=== PATIENT | male | born 1945 | race Caucasian/White ===

== ENCOUNTER 2016-11-22 09:04 | Observation (INO) | payer OTHER ==
[~2016-11-22] VITALS: Ht 182.9 cm; Wt 106.2 kg
[~2016-11-22 09:04] MED LIST: ALL100 PO; AMLO-114 PO; ATOR-24 PO; HYDR25TA4 PO; LOSA50TA54 PO; NRN400 PO; PANT40TA PO
[2016-11-22] MEDS ORDERED: SODIUM CHLORIDE 0.9% 1000ML 1,000 ML IV STA (09:27)
[2016-11-22] MEDS ORDERED: ALLO100T PO (09:30)
[2016-11-22] MEDS ORDERED: ASPI-435 PO (09:30)
[2016-11-22 09:42] LABS: BASO % 0.6 %; BASO ABS # 0.05 K/uL (0-0.2); COMPLETE YES; EOS % 4.2 %; HEMATOCRIT 41.9 % (42-52); IG% 0.1 %; LYMPH % 37.6 %; LYMPH ABS # 3.33 K/uL (1.2-3.4); MEAN CELL VOLUME 97.4 fL (80-100); MEAN CORPUSCULAR HEMOGLOBIN 32.6 pg (25-34); MEAN CORPUSCULAR HGB CONC 33.4 g/dl (32-36); MEAN PLATELET VOLUME 11.2 fL (7.4-10.4); MONO % 7.9 %; NEUT % 49.6 %; PLATELET COUNT 187 K/uL (130-400); WHITE BLOOD COUNT 8.86 K/uL (4.8-10.8)
[2016-11-22 09:50] LABS: BUN/CREATININE RATIO 13.7 (10-20); CALCIUM 8.7 mg/dl (8.5-10.1); CREATININE 1.3 mg/dl (0.60-1.40); POTASSIUM 3.4 mmol/L (3.5-5.1)
[2016-11-22 09:55] LABS: CKMB/CK RATIO 1.5 (0-3.0)
--- NOTE | 2016-11-22 10:00 | EMERGENCY ROOM VISIT NOTE ---
ED Visit Note First contact with patient: 09:16 71-year-old male with substernal chest pain radiating into the back associated with diaphoresis and shortness of breath was fully evaluated by Jerson Devlin. Please see his note. I also independently evaluated the patient. Multiple studies including EKG and imaging were obtained. The patient will require further evaluation in the hospital.
[2016-11-22] MEDS ORDERED: OPTIRAY 320 IV PRN (10:15)
--- NOTE | 2016-11-22 10:17 | DIAGNOSTIC IMAGING REPORT ---
CHEST ONE VIEW PORTABLE CLINICAL HISTORY: CHEST PAIN dyspnea COMPARISON STUDY: No previous studies for comparison. FINDINGS: Mild cardia megaly. Diaphragms smooth. Lungs are clear. IMPRESSION: Mild cardiomegaly. Otherwise negative study Electronically signed by: Dony Khan M.D. 11/22/2016 10:16 AM Dictated Date/Time: 11/22/2016 10:15 AM
--- NOTE | 2016-11-22 10:44 | DIAGNOSTIC IMAGING REPORT ---
CHEST CTA for AORTIC DISSECTION CT DOSE: 1853.13 mGy.cm HISTORY: Back pain. Facial paresthesias. Assess for dissection. TECHNIQUE: Multiaxial CT images of the chest were performed both before and after the intravenous administration of contrast to evaluate the aorta. Maximal intensity projection images were also obtained. COMPARISON STUDY: Chest 11/22/2016. FINDINGS: Normal caliber thoracic aorta with no evidence for dissection. The main pulmonary arteries are patent. No pleural or pericardial effusions. The heart is top normal in size. The central airways are patent. No pneumothorax. A 3 mm right apical pulmonary nodule on image 86. Mild dependent changes seen at the lung bases. Hepatic steatosis. The visualized spleen and adrenal glands are unremarkable. No mediastinal or hilar lymphadenopathy. IMPRESSION: 1. No evidence for an aortic dissection. 2. A 3 mm right apical pulmonary nodule. Please refer to the chart below for recommended follow-up. Please refer to below summary of Fleischner criteria recommendations for follow-up of incidental CT nodules (Alonso Stanford, Guidelines for management of small pulmonary nodules detected on CT scans: A statement from the Fleischner Society, Radiology 237: [id number].) Low Risk Patient: Minimal or no smoking or other known risk factors for malignancy <=4 mm: No follow-up needed. >4-6 mm: Initial follow-up CT at 12 months; if unchanged, no further follow-up. >6-8 mm: Initial follow-up CT at 6-12 months then at 18-24 months if no change. >8 mm: Follow-up CT at \R\3, 9, 24 months, or PET and/or biopsy. High Risk Patient: History of smoking or other known risk factors <=4 mm: Follow-up at 12 months; if unchanged, no further follow-up. >4-6 mm: Initial follow-up CT at 6-12 months then at 18-24 months if no change. >6-8 mm: Initial follow-up CT at 3-6 months then at 9-12 and 24 months if no change. >8 mm: Same as low risk patient. Note: Nodule size measured as average of length and width. Ground glass or partly solid nodules may require longer follow-up to exclude indolent adenocarcinoma. Electronically signed by: Ashu Pulliam M.D. 11/22/2016 10:43 AM Dictated Date/Time: 11/22/2016 10:36 AM
[2016-11-22 10:54] VITALS: BP 119/58; PULSE 63; TEMP 36.8; O2SAT 96; Ht 182.9 cm; Wt 106.2 kg
[2016-11-22] MEDS ORDERED: NITROGLYCERIN 0.4 MG SL PER TAB CHARGE SL PRN (11:15)
[2016-11-22] MEDS ORDERED: ONDANSETRON INJ 2 MG/ML 2 ML VIAL IV PRN (11:15)
[2016-11-22] MEDS ORDERED: MAGNESIUM HYDROXIDE SUSP 30 ML UDC PO PRN (11:15)
[2016-11-22] MEDS ORDERED: SODIUM CHLORIDE 0.9% 1000ML 1,000 ML IV ONE (11:15)
[2016-11-22] MEDS ORDERED: ALUMINUM/MAGNESIUM/SIMETH (MAALOX MAX) 30 ML UDC PO PRN (11:15)
[2016-11-22] MEDS ORDERED: POLYETHYLENE (MIRALAX) 17 GM PACK PO PRN (11:15)
[2016-11-22] MEDS ORDERED: ACETAMINOPHEN 325 MG TAB PO PRN (11:15)
--- NOTE | 2016-11-22 11:33 | History and Physical ---
History & Physical Date & Time of Service: Nov 22, 2016 at 11:10 Chief Complaint: Heart Attack Signs Primary Care Physician: Erik Salinas M.D. History of Present Illness Source: patient, family Patient is a pleasant 71 y/o male, with PMHx of CAD s/p STEMI in 2011 with stent placement x2 (left circumflex and obtuse marginal), HTN, HDL, and GERD, who presented to the ED because of chest discomfort. He was at work today, when sudden, intense chest discomfort occurred. Pain radiated between shoulder blades. +facial numbness/tingling. +diaphoresis. +nausea. Patient took nitro x1 with relief in symptoms. Symptoms are very similar to previous episode of RI. Prior to the event, patient has not experienced angina. Patient recently followed-up with cardiology within the last 1-2 weeks, with a good report. Currently, patient states he is feeling well. Patient denies any fever, chills, lightheadedness, dizziness, vision changes, palpitations, edema, SOB, wheezing , cough, abdominal pain, vomiting, diarrhea, urinary symptoms, melena, weakness , muscle/joint pain, anxiety/depression, active bleeding, or new skin discoloration/changes. Past Medical/Surgical History 1. CAD s/p STEMI in 2011 with stent placement x2 (left circumflex and obtuse marginal) 2. HTN 3. HDL 4. GERD 5. Pre-diabetic 6. Malignant neoplasm of prostate, s/p prostate resection Family History Cancer Diabetes mellitus Heart disease Hypertension Social History Smoking Status: Former Smoker Alcohol Use: occasionally Marital Status: Occupational Status: retired Immunizations History of Influenza Vaccine: No History of Tetanus Vaccine?: Unknown History of Pneumococcal: No History of Hepatitis B Vaccine: No Multi-Drug Resistant Organisms History of MDRO: No Allergies Coded Allergies: Lisinopril (Verified Adverse Reaction, Unknown, cough, 11/22/16) Home Medications Scheduled Allopurinol (Zyloprim), 100 MG PO DAILY Amlodipine (Norvasc), 10 MG PO QAM Aspirin (Aspirin 81), 81 MG PO QAM Atorvastatin (Lipitor), 40 MG PO QPM Gabapentin (Gabapentin), 400 MG PO BID Hydrochlorothiazide (Hctz), 25 MG PO QAM Losartan Potassium (Cozaar), 50 MG PO BID Pantoprazole (Protonix), 40 MG PO QAM Physical Exam Vital Signs Date Time Temp Pulse Resp B/P Pulse Ox O2 Delivery O2 Flow Rate FiO2 11/22/16 10:54 36.8 63 15 119/58 96 Room Air 11/22/16 10:34 59 16 119/58 95 Room Air 11/22/16 10:10 54 16 120/74 99 Room Air 126/68 11/22/16 09:52 59 16 112/63 96 Room Air 11/22/16 09:20 66 11/22/16 09:10 36.4 73 16 107/63 96 Room Air General Appearance: no apparent distress, + obese Head: normocephalic, atraumatic Eyes: normal inspection, PERRL ENT: hearing grossly normal Neck: supple Respiratory/Chest: lungs clear, no respiratory distress, no accessory muscle use Cardiovascular: normal peripheral pulses, + bradycardia, + pertinent finding ( regular rhythm ) Abdomen/GI: normal bowel sounds, non tender, soft Back: normal inspection Extremities/Musculoskelatal: no calf tenderness, no pedal edema Neurologic/Psych: alert, normal mood/affect, oriented x 3 Skin: normal color, warm/dry, no rash Diagnostics Laboratory Results Results Past 24 Hours Test 11/22/16 09:20 11/22/16 09:33 Range/Units White Blood Count 8.86 4.8-10.8 K/uL Red Blood Count 4.30 4.7-6.1 M/uL Hemoglobin 14.0 14.0-18.0 g/dL Hematocrit 41.9 42-52 % Mean Corpuscular Volume 97.4 80-100 fL Mean Corpuscular Hemoglobin 32.6 25-34 pg Mean Corpuscular Hemoglobin Concent 33.4 32-36 g/dl Platelet Count 187 130-400 K/uL Mean Platelet Volume 11.2 7.4-10.4 fL Neutrophils (%) (Auto) 49.6 % Lymphocytes (%) (Auto) 37.6 % Monocytes (%) (Auto) 7.9 % Eosinophils (%) (Auto) 4.2 % Basophils (%) (Auto) 0.6 % Neutrophils # (Auto) 4.40 1.4-6.5 K/uL Lymphocytes # (Auto) 3.33 1.2-3.4 K/uL Monocytes # (Auto) 0.70 0.11-0.59 K/uL Eosinophils # (Auto) 0.37 0-0.5 K/uL Basophils # (Auto) 0.05 0-0.2 K/uL RDW Standard Deviation 47.4 36.4-46.3 fL RDW Coefficient of Variation 13.3 11.5-14.5 % Immature Granulocyte % (Auto) 0.1 % Immature Granulocyte # (Auto) 0.01 0.00-0.02 K/uL Sodium Level 141 136-145 mmol/L Potassium Level 3.4 3.5-5.1 mmol/L Chloride Level 104 98-107 mmol/L Carbon Dioxide Level 23 21-32 mmol/L Anion Gap 14.0 3-11 mmol/L Blood Urea Nitrogen 18 7-18 mg/dl Creatinine 1.30 0.60-1.40 mg/dl Est Creatinine Clear Calc Drug Dose 67.8 ml/min Estimated GFR () 64.5 Estimated GFR (Non- 55.7 BUN/Creatinine Ratio 13.7 10-20 Random Glucose 128 70-99 mg/dl Calcium Level 8.7 8.5-10.1 mg/dl Total Bilirubin 0.5 0.2-1 mg/dl Direct Bilirubin 0.1 0-0.2 mg/dl Aspartate Amino Transf (AST/SGOT) 18 15-37 U/L Alanine Aminotransferase (ALT/SGPT) 34 12-78 U/L Alkaline Phosphatase 97 45-117 U/L Total Creatine Kinase 124 39-308 U/L Creatine Kinase MB 1.8 0.5-3.6 ng/ml Creatine Kinase MB Ratio 1.5 0-3.0 Total Protein 7.7 6.4-8.2 gm/dl Albumin 3.7 3.4-5.0 gm/dl Lipase 157 73-393 U/L Bedside Troponin I 0.000 0-0.045 ng/ml Diagnostic Radiology CHEST CTA for AORTIC DISSECTION CT DOSE: 1853.13 mGy.cm HISTORY: Back pain. Facial paresthesias. Assess for dissection. TECHNIQUE: Multiaxial CT images of the chest were performed both before and after the intravenous administration of contrast to evaluate the aorta. Maximal intensity projection images were also obtained. COMPARISON STUDY: Chest 11/22/2016. FINDINGS: Normal caliber thoracic aorta with no evidence for dissection. The main pulmonary arteries are patent. No pleural or pericardial effusions. The heart is top normal in size. The central airways are patent. No pneumothorax. A 3 mm right apical pulmonary nodule on image 86. Mild dependent changes seen at the lung bases. Hepatic steatosis. The visualized spleen and adrenal glands are unremarkable. No mediastinal or hilar lymphadenopathy. IMPRESSION: 1. No evidence for an aortic dissection. 2. A 3 mm right apical pulmonary nodule. Please refer to the chart below for recommended follow-up. Please refer to below summary of Fleischner criteria recommendations for follow-up of incidental CT nodules (Alonso Stanford, Guidelines for management of small pulmonary nodules detected on CT scans: A statement from the Fleischner Society, Radiology 237: [phone].) Low Risk Patient: Minimal or no smoking or other known risk factors for malignancy <=4 mm: No follow-up needed. >4-6 mm: Initial follow-up CT at 12 months; if unchanged, no further follow-up. >6-8 mm: Initial follow-up CT at 6-12 months then at 18-24 months if no change. >8 mm: Follow-up CT at \R\3, 9, 24 months, or PET and/or biopsy. High Risk Patient: History of smoking or other known risk factors <=4 mm: Follow-up at 12 months; if unchanged, no further follow-up. >4-6 mm: Initial follow-up CT at 6-12 months then at 18-24 months if no change. >6-8 mm: Initial follow-up CT at 3-6 months then at 9-12 and 24 months if no change. >8 mm: Same as low risk patient. Note: Nodule size measured as average of length and width. Ground glass or partly solid nodules may require longer follow-up to exclude indolent adenocarcinoma. Electronically signed by: Ashu Pulliam M.D. 11/22/2016 10:43 AM Dictated Date/Time: 11/22/2016 10:36 AM The status of this report is Signed. Draft = Not yet reviewed or approved by Radiologist. Signed = Reviewed and approved by Radiologist. CHEST ONE VIEW PORTABLE CLINICAL HISTORY: CHEST PAIN dyspnea COMPARISON STUDY: No previous studies for comparison. FINDINGS: Mild cardia megaly. Diaphragms smooth. Lungs are clear. IMPRESSION: Mild cardiomegaly. Otherwise negative study Electronically signed by: Dony Khan M.D. 11/22/2016 10:16 AM Dictated Date/Time: 11/22/2016 10:15 AM The status of this report is Signed. Draft = Not yet reviewed or approved by Radiologist. Signed = Reviewed and approved by Radiologist. Impression Assessment and Plan 71 y/o male, with PMHx of CAD s/p STEMI in 2011 with stent placement x2 (left circumflex and obtuse marginal), HTN, HDL, pre-diabetic, and GERD, who presented to the ED because of chest discomfort. Acute cardiac event r/o: - Admit to tele observation for cardiac monitoring - Trend cardiac enzymes - Stress test tomorrow if enzymes remain negative - IV NSS @ 125 ml/hr - Bradycardia- per patient, HR normally mid-high 50s Hypokalemia: Replace with 20 mEq KCL supplement x1. Follow PRP and replete PRN CAD s/p STEMI in 2011: - Continue ASA 81 mg - ECHO November 2014- EF 50-55%, grade I diastolic dysfunction, mid inferior wall mild hypokinesis, trace TR, trace MD - Follows with Dr. Valentine HTN: Continue Losartan 50 mg BID, HCTZ 25 mg daily, and Norvasc 10 mg HDL: - Continue Lipitor 40 mg daily - Lipid panel July 2016- triglycerides 83, total cholesterol 130, HDL 61, LDL 52 Pre-diabetic, diet controlled: ha1c July 2016= 5.8 GERD: Continue Protonix daily Gout: Continue Allopurinol 100 mg daily Lumbar radiculopathy: Continue Gabapentin 400 mg BID GI Prophylaxis: Maalox PRN, IV Zofran PRN, Colace and/or Milk of Mag PRN DVT prophylaxis: Lovenox 40 mg SQ q24 hrs, CHRISTIANO and SCDs Code Status: LEVEL I, FULL Dispo: From home, lives with Level of Care Telemetry Advanced Directives Existing Living Will: No Existing Power of Credit Controller: No Resuscitation Status FULL RESUSCITATION VTE Prophylaxis VTE Risk Assessment Done? Y/N: Yes Risk Level: Low Given or contraindicated: Enoxaparin (Lovenox)SQ, T.E.D. Stockings, SCD's
[2016-11-22 12:02] VITALS: BP 142/79; PULSE 56; TEMP 36.5; O2SAT 98
[2016-11-22] MEDS ORDERED: POTASSIUM CHLORIDE 20 MEQ TABCR PO ONE (12:30)
[2016-11-22 12:46] LABS: PROTHROMBIN TIME (PATIENT) 10.7 SECONDS (9.0-12.0)
[2016-11-22] MEDS ORDERED: IV FLUIDS COMPLETED PRN (13:45)
--- NOTE | 2016-11-22 13:48 | DIAGNOSTIC IMAGING REPORT ---
CT HEAD WITHOUT CONTRAST (CT) CLINICAL HISTORY: Dizziness, pressure COMPARISON STUDY: No previous studies for comparison. TECHNIQUE: Axial CT of the brain is performed from the vertex to the skull base. IV contrast was not administered for this examination. CT DOSE: 884.08 mGy.cm FINDINGS: No intra or extra-axial mass lesions are visualized. There is no CT evidence of acute cortical infarction. There is no evidence of midline shift. There is no acute hemorrhage. No calvarial fractures are visualized. There are patchy white matter hypodensities likely on a small vessel basis. There is no evidence of pathologic ventricular dilatation. There is mild maxillary mucosal thickening. There is ethmoid sinus mucosal thickening IMPRESSION: No acute intracranial findings Electronically signed by: Javid Ramires M.D. 11/22/2016 1:46 PM Dictated Date/Time: 11/22/2016 1:42 PM
--- NOTE | 2016-11-22 14:43 | Medical Student: [facility] ---
Consultation Date of Consultation: Nov 22, 2016. Requesting Physician: Bel Quinn PA-C Attending Physician: Ric Huitron MD Reason for Consultation: Chest pain History of Present Illness Mr. Andrade is a 71 y/o gentleman with a history of acute STEMI s/p stent placement in the LCX and obtuse marginal in 2011, as well as hypertension and hyperlipidemia, who presented to the ED this morning complaining of 10/10 pain that began between his scapulae and radiated to his chest. He noticed while he was at his place of employment around 0800 this morning. He was not exerting himself when the symptoms began. He also reports pain in his neck and jaw, diaphoresis, palpitations, and nausea at that time. He reports that this episode felt almost identical to his STEMI in 2011. Initially, his symptoms were mostly relieved with sublingual nitroglycerin, but they began to return after a short time and he decided to come to the ED. Prior to this morning, he had not been experiencing any chest pain or dyspnea at rest. He does note that he has some dyspnea on exertion, but reports that this is baseline for him. In addition, since the event this morning, he has been experiencing dysesthesias of his forehead that are persistent and stable. He denies headache or any other focal neurologic symptoms. CT of the head was negative for acute intracranial findings. He is a patient of Dr. Valentine'scarlet and states that his last stress test was in 2014. It was an exercise test and he was unable to complete it because he became hypertensive. EKG on admission showed no acute ST changes, and CK and troponin were both negative on initial lab draw. Vitals have been stable since admission. CTA was negative for aortic dissection or aneurysm. He is not experiencing any chest pain at present, and his only persistent symptom is the dysesthesia of his forehead. Past Medical/Surgical History Medical History: 1. Coronary artery disease s/p stent placement x2 2. Hypertension 3. Hyperlipidemia 4. GERD 5. Pre-diabetes 6. Prostate malignancy s/p prostate resection Family History 1. Heart disease 2. Hypertension 3. Diabetes mellitus 4. Cancer Social History Smoking Status: Former Smoker History of Alcohol Use: Yes (Beer a few a week) Marital Status: Occupation Status: retired Review of Systems Constitutional: No chills, No fever, No sweats, No weakness Eyes: No diplopia, No eye pain, No worsening of vision ENT: No hearing loss, No tinnitus Respiratory: + dyspnea on exertion, No cough, No dyspnea at rest, No hemoptysis , No shortness of breath, No sputum, No wheezing Cardiac: No PND, No chest pain, No claudication, No edema, No orthopnea, No palpitations Breast: No problem reported Abdomen: No GI bleeding, No constipation, No diarrhea, No nausea, No pain, No vomiting Musculoskeletal: No calf pain, No muscle pain, No swelling Male : No dysuria, No hematuria, No urinary frequency Neurologic: + numbness/tingling (forehead), No balance problems, No memory loss , No paralysis, No vertigo, No weakness Psychiatric: No problem reported Heme: No abnormal bleeding/bruising, No clotting problems Endo: No excessive thirst, No excessive urination Skin: No bleeding, No new/changing skin lesions, No rash All Other Systems: Reviewed and Negative Allergies Coded Allergies: Lisinopril (Verified Adverse Reaction, Unknown, cough, 11/22/16) Medications Current Inpatient Medications Medications (Trade) Dose Ordered Sig/Maximo Route Start Time Stop Time Status Last Admin Dose Admin Ioversol (Optiray 320) 125 ml UD PRN IV 11/22/16 10:15 11/26/16 10:14 Enoxaparin Sodium 40 mg 40 mg QPM SC 11/22/16 21:00 12/22/16 11:14 Sodium Chloride (Nss 1000ml) 1,000 ml @ 125 mls/hr Q8H ONCE IV 11/22/16 11:15 11/22/16 19:14 11/22/16 12:21 125 MLS/HR Acetaminophen (Tylenol Tab) 650 mg Q4H PRN PO 11/22/16 11:15 12/22/16 11:14 Al Hydrox/Mg Hydrox/Simethicone (Maalox Max Susp) 15 ml Q4H PRN PO 11/22/16 11:15 12/22/16 11:14 Magnesium Hydroxide (Milk Of Magnesia Susp) 30 ml Q12H PRN PO 11/22/16 11:15 12/22/16 11:14 Ondansetron HCl (Zofran Inj) 4 mg Q6H PRN IV 11/22/16 11:15 12/22/16 11:14 Nitroglycerin (Nitrostat Tab) 0.4 mg UD PRN SL 11/22/16 11:15 12/22/16 11:14 Polyethylene (Miralax Powder Packet) 17 gm DAILY PRN PO 11/22/16 11:15 12/22/16 11:14 Allopurinol (Zyloprim Tab) 100 mg DAILY PO 11/23/16 09:00 12/23/16 08:59 Amlodipine Besylate (Norvasc Tab) 10 mg QAM PO 11/23/16 09:00 12/23/16 08:59 Aspirin (Ecotrin Tab) 81 mg QAM PO 11/23/16 09:00 12/23/16 08:59 Atorvastatin Calcium (Lipitor Tab) 40 mg QPM PO 11/22/16 21:00 12/22/16 20:59 Gabapentin (Neurontin Cap) 400 mg BID PO 11/22/16 21:00 12/22/16 20:59 Hydrochlorothiazide (Hydrochlorothiazide Tab) 25 mg QAM PO 11/23/16 09:00 12/23/16 08:59 Losartan Potassium (coZAAR TAB) 50 mg BID PO 11/22/16 21:00 12/22/16 20:59 Pantoprazole Sodium (Protonix Tab) 40 mg QAM PO 11/23/16 09:00 12/23/16 08:59 Miscellaneous (Iv Fluids Completed) 1 ea PRN PRN N/A 11/22/16 13:45 11/22/17 13:44 Physical Exam Date Time Temp Pulse Resp B/P Pulse Ox O2 Delivery O2 Flow Rate FiO2 11/22/16 12:02 36.5 56 16 142/79 98 Room Air 11/22/16 12:00 Room Air 11/22/16 11:23 63 18 145/67 97 11/22/16 10:54 36.8 63 15 119/58 96 Room Air 11/22/16 10:34 59 16 119/58 95 Room Air 11/22/16 10:10 54 16 120/74 99 Room Air 126/68 11/22/16 09:52 59 16 112/63 96 Room Air 11/22/16 09:20 66 11/22/16 09:10 36.4 73 16 107/63 96 Room Air General Appearance: WD/WN, no apparent distress Eyes: bilateral eyes EOMI, bilateral eyes PERRL, bilateral eyes normal inspection ENT: normal ENT inspection, hearing grossly normal, pharynx normal Neck: supple, no adenopathy, no JVD, no carotid bruits, trachea midline Respiratory: chest non-tender, lungs clear, normal breath sounds, no respiratory distress, no accessory muscle use Cardiovascular: regular rate, rhythm, no edema, no gallop, no JVD, no murmur, + normal peripheral pulses (2+ posterior tibial and radial pulses bilaterally), + pertinent finding (normal capillary refill) Abdomen: normal bowel sounds, non tender, soft, no organomegaly, no pulsatile mass Musculoskeletal: normal, normal tone Neurologic/Psychiatric: independent agent music education II-XII nml as tested, no motor/sensory deficits, alert, normal mood/affect, oriented x 3, + pertinent finding (sensation is intact to the forehead) Skin: normal color, warm/dry, no rash Lymphatic: no adenopathy Laboratory Results Last 24 Hours Test 11/22/16 09:20 11/22/16 09:33 White Blood Count 8.86 K/uL Red Blood Count 4.30 M/uL Hemoglobin 14.0 g/dL Hematocrit 41.9 % Mean Corpuscular Volume 97.4 fL Mean Corpuscular Hemoglobin 32.6 pg Mean Corpuscular Hemoglobin Concent 33.4 g/dl Platelet Count 187 K/uL Mean Platelet Volume 11.2 fL Neutrophils (%) (Auto) 49.6 % Lymphocytes (%) (Auto) 37.6 % Monocytes (%) (Auto) 7.9 % Eosinophils (%) (Auto) 4.2 % Basophils (%) (Auto) 0.6 % Neutrophils # (Auto) 4.40 K/uL Lymphocytes # (Auto) 3.33 K/uL Monocytes # (Auto) 0.70 K/uL Eosinophils # (Auto) 0.37 K/uL Basophils # (Auto) 0.05 K/uL RDW Standard Deviation 47.4 fL RDW Coefficient of Variation 13.3 % Immature Granulocyte % (Auto) 0.1 % Immature Granulocyte # (Auto) 0.01 K/uL Prothrombin Time 10.7 SECONDS Prothromb Time International Ratio 1.0 Sodium Level 141 mmol/L Potassium Level 3.4 mmol/L Chloride Level 104 mmol/L Carbon Dioxide Level 23 mmol/L Anion Gap 14.0 mmol/L Blood Urea Nitrogen 18 mg/dl Creatinine 1.30 mg/dl Est Creatinine Clear Calc Drug Dose 67.8 ml/min Estimated GFR () 64.5 Estimated GFR (Non- 55.7 BUN/Creatinine Ratio 13.7 Random Glucose 128 mg/dl Calcium Level 8.7 mg/dl Total Bilirubin 0.5 mg/dl Direct Bilirubin 0.1 mg/dl Aspartate Amino Transf (AST/SGOT) 18 U/L Alanine Aminotransferase (ALT/SGPT) 34 U/L Alkaline Phosphatase 97 U/L Total Creatine Kinase 124 U/L Creatine Kinase MB 1.8 ng/ml Creatine Kinase MB Ratio 1.5 Total Protein 7.7 gm/dl Albumin 3.7 gm/dl Lipase 157 U/L Bedside Troponin I 0.000 ng/ml Assessment & Plan ASSESSMENT: Mr. Andrade is a 71 y/o gentleman with a history of acute STEMI s/p stent placement in the LCX and obtuse marginal in 2011, as well as hypertension and hyperlipidemia, who presented to the ED this morning complaining of 10/10 pain that began between his scapulae and radiated to his chest. Given the patient's cardiac history, risk factors, and the fact that his symptoms were relieved with administration of sublingual nitroglycerin, this event likely represents an acute coronary syndrome. His cardiac enzymes have been within normal limits and his EKG showed no evidence of ischemia, which points toward unstable angina as the cause of his symptoms. Other explanations for his presentation include aortic dissection, musculoskeletal pain, pulmonary embolus , and pneumothorax, though these are all significantly less likely. Aortic dissection is very unlikely in the setting of a normal CTA, and a pneumothorax would have likely shown up on his chest X-ray. Musculoskeletal pain would not exhibit such a dramatic response to administration of nitroglycerin. Pulmonary embolus is unlikely in the setting of a normal CXR and CTA, especially in combination with a lack of persistent respiratory symptoms. CT of the head showed small white matter hypodensities indicative of small vessel disease. Mr. Andrade's dysesthesias are likely the result of a small intracranial microinfarct. Given that CT was negative for hemorrhage and clinical suspicion is low for acute CVA, if this problem persists, further workup can be arranged on an outpatient basis. PLAN: 1. Suspected acute coronary syndrome -Continue to trend troponins -Serial EKG evaluation -Sublingual nitroglycerin PRN for chest pain -If chest pain free, enzymes negative --> exercise stress echo in AM. -Keep NPO -Consider full dose anticoagulation. 2. History of acute ME s/p spent placement -Continue aspirin 81 mg daily -Continue atorvastatin 40mg daily-- consider increasing dose to 80mg given patient's risk category 3. Hypertension -Continue amlodipine 10mg daily -Continue HCTZ 25mg daily -Continue losartan 50mg bid DR. HUITRON ADDENDUM: Agree with findings as discussed above by Medical Student, Bhavesh Gomez. See dictated consult for full details. Briefly, Likelihood for ACS is elevated With current presentation risk of cardiac events is low to intermediate Recommend ischemia driven strategy --> tentatively plan for exercise stress echo in AM. If recurrent pain or positive enzymes overnight --> would start heparin and consider proceeding directly to cardiac cath in AM. Keep NPO overnight. Continue ASA/statin, BP meds.
[2016-11-22 15:33] VITALS: BP 127/78; PULSE 57; TEMP 36.7; O2SAT 96
[2016-11-22 19:48] VITALS: BP 135/68; PULSE 56; TEMP 36.8; O2SAT 96
[2016-11-22 20:15] VITALS: O2SAT 96
[2016-11-22] MEDS ORDERED: ATORVASTATIN 40 MG TAB PO SCH (21:00)
[2016-11-22] MEDS ORDERED: ENOXAPARIN 40 MG/0.4 ML SYR SC SCH (21:00)
[2016-11-22] MEDS: GABAPENTIN 400 MG CAP PO SCH (21:08)
[2016-11-22] MEDS: LOSARTAN POTASSIUM 50 MG TAB PO SCH (21:08)
--- NOTE | 2016-11-22 22:08 | CARDIOLOGY CONSULTATION ---
DATE OF CONSULTATION: 11/22/2016 REASON FOR CONSULTATION: Chest pain. CONSULTED REQUESTED BY: Dr. Apple. OUTPATIENT CREATIVE TECHNOLOGIST: Dr. Valentine. HISTORY OF PRESENT ILLNESS: Mr. Andrade is a 71-year-old gentleman with a history of coronary artery disease, status post inferior STEMI in March of 2012, at which time he was found to have severe disease in his mid-circumflex and an occluded second obtuse marginal for which he had 2 bare metal stents placed. He also was noted to have severe residual proximal RCA disease, which was treated with a bare metal stent in a staged fashion later that month. The patient returns today with recurrent chest symptoms similar to his prior event. He has been admitted to the hospitalist service for continued monitoring and cardiology consultation for further management recommendations. The patient states that he had been in the usual state of health until this morning, when he developed pain in his back radiating across his chest, associated with nausea, vomiting, and some diaphoresis. The patient took 1 sublingual nitroglycerin with approximately 90% relief of his pain, but as his symptoms were very similar to what he had before, he presented to the Emergency Department. Upon presenting to the Emergency Department, the patient was hemodynamically stable with a systolic blood pressure of 107/63. He was afebrile, heart rate was 73 and he was satting 96% on room air. His initial EKG showed sinus rhythm with no significant ST changes. His initial [id number]-[id number] troponin was negative. He was given additional sublingual nitroglycerin before being admitted to the floor and he has been chest pain free since that time. PAST MEDICAL HISTORY: 1. Coronary artery disease, status post inferior STEMI in March 2012, treated with bare metal stents to his circumflex to OM2, residual LAD disease, mild to moderate, residual severe early mid-RCA disease, treated with bare metal stent, 2.25 dilated to 3.0. 2. Hypertension. 3. GERD. 4. Lumbar degenerative disc disease. 5. Hyperlipidemia. 6. Lumbar radiculopathy. 7. Obstructive sleep apnea. 8. Palpitations. PAST SURGICAL HISTORY: 1. Prior coronary artery disease, status post stent as above. 2. Prior inguinal hernia repair. FAMILY HISTORY: Mother and father both had coronary artery disease. No premature coronary disease. No sudden cardiac . SOCIAL HISTORY: The patient quit smoking more than 10 years ago. Denies heavy alcohol. Currently, works intermittently for [employer]. REVIEW OF SYSTEMS: A 10-point review of systems was completed and otherwise negative, unless stated in the HPI. HOME MEDICATIONS: 1. Allopurinol 100, amlodipine 10, aspirin 81, atorvastatin 40, gabapentin 400 b.i.d. 2. Hydrochlorothiazide 25. 3. Losartan 50 mg b.i.d. 4. Protonix 40. ALLERGIES: LISINOPRIL LEADS TO HIVES. PHYSICAL EXAMINATION: VITAL SIGNS: Temperature 36.4, heart rate 59, blood pressure 119/58, satting 95% on room air. GENERAL: The patient appears comfortable, no acute distress. HEENT: Sclerae are anicteric. Oropharynx is clear. Mucous membranes are moist. NECK: Supple with no lymphadenopathy. LUNGS: Clear to auscultation bilaterally. HEART: Regular rate and rhythm with no murmurs, rubs or gallops. ABDOMEN: Soft, nontender, nondistended with positive bowel sounds. EXTREMITIES: Warm. He has no significant lower extremity edema. He has intact distal pulses, including 2+ right radial pulse. SKIN: Shows no rashes or lesions. NEUROLOGIC: Nonfocal. PSYCHIATRIC: He is alert and oriented x3 and his mood and affect are appropriate. LABORATORY DATA: White blood cell count 8.9, hemoglobin 14, platelets of 187. INR of 1.0. Sodium 141, potassium 3.4, BUN 18, creatinine of 1.3. Ofnxf-ck-mrgi troponin was negative. LFTs were within normal limits. Lipase of 157. Chest x-ray showed mild cardiomegaly, but otherwise, no acute cardiopulmonary process. A chest CTA was negative for aortic dissection. Head CT showed no acute intracranial findings. EKG showed sinus rhythm, bradycardic at a rate of 54. There is a questionable inferior infarct, no significant dynamic ST changes. Telemetry reviewed, no significant events. IMPRESSION AND PLAN: 1. Suspected acute coronary syndrome. 2. History of coronary artery disease, status post prior percutaneous coronary intervention with bare metal stents to his circumflex to OM and bare metal stent to his early mid right coronary artery. 3. Hypertension. 4. Hyperlipidemia. 5. Gastroesophageal reflux disease. The patient presented today with acute onset of chest pain with associated symptoms similar to his prior presentation with ST elevation PA. Symptoms resolved with sublingual nitroglycerin and he has remained chest pain free. EKG and [id number] troponin has been negative. Suspicion for acute coronary syndrome is elevated although with current presentation risk of adverse cardiac events is probably low to intermediate. In this setting , I agree with continued monitoring overnight on telemetry. Continue to cycle troponins. Assuming no recurrent chest pain and cardiac markers negative, would plan for ischemia-driven strategy for further risk stratification with plan for exercise stress echo in the a.m. If he were to have recurrent chest pain or elevated enzymes, would consider proceeding with cardiac catheterization. For now, continue on aspirin, statin and home blood pressure medicines. If recurrent chest pain, would add heparin. We will continue to follow the patient while he is in the hospital. Please contact with any questions. Thank you for allowing us to participate in the care of this patient. LIZBETH
[2016-11-22 23:45] VITALS: BP 136/72; PULSE 58; TEMP 36.7; O2SAT 95
[2016-11-23 00:10] VITALS: O2SAT 95
[2016-11-23 04:00] VITALS: BP 128/65; PULSE 58; TEMP 36.8; O2SAT 95
[2016-11-23 07:51] LABS: HEMATOCRIT 41.2 % (42-52); MEAN CELL VOLUME 98.6 fL (80-100); MEAN CORPUSCULAR HEMOGLOBIN 33.5 pg (25-34); MEAN PLATELET VOLUME 11.4 fL (7.4-10.4); PLATELET COUNT 157 K/uL (130-400); RED BLOOD COUNT 4.18 M/uL (4.7-6.1); WHITE BLOOD COUNT 6.28 K/uL (4.8-10.8)
[2016-11-23] MEDS: LOSARTAN POTASSIUM 50 MG TAB PO SCH (07:53)
[2016-11-23] MEDS: GABAPENTIN 400 MG CAP PO SCH (07:53)
[2016-11-23 08:19] LABS: BUN/CREATININE RATIO 12.7 (10-20); CALCIUM 8.3 mg/dl (8.5-10.1); CREATININE 1.1 mg/dl (0.60-1.40); MAGNESIUM 1.9 mg/dl (1.8-2.4); POTASSIUM 3.5 mmol/L (3.5-5.1)
[2016-11-23 08:27] VITALS: BP 143/76; PULSE 49; TEMP 36.6; O2SAT 95
[2016-11-23] MEDS ORDERED: ASPIRIN 81 MG ECTAB PO SCH (09:00)
[2016-11-23] MEDS ORDERED: AMLODIPINE BESYLATE 5 MG TAB PO SCH (09:00)
[2016-11-23] MEDS ORDERED: ALLOPURINOL 100 MG TAB PO SCH (09:00)
[2016-11-23] MEDS ORDERED: HYDROCHLOROTHIAZIDE 25 MG TAB PO SCH (09:00)
[2016-11-23] MEDS ORDERED: PANTOprazole SOD 40 MG TAB PO SCH (09:00)
--- NOTE | 2016-11-23 10:36 | EMERGENCY ROOM VISIT NOTE ---
ED Visit Note First contact with patient: 09:16 Chief Complaint: Chest pain History of Present Illness: Mr. Andrade is a 71 year-old white male who ambulates into the ED complaining of chest pain. Historically patient reports has coronary artery disease and is status post [place] and stent placement, hypertension and dyslipidemia. Patient reports a acute onset of pain that started approximately 30-45 minutes ago. 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 He reports he took one nitroglycerin shortly after the onset of pain with moderate relief of his discomfort. Currently he describes his discomfort as Since that time the pain has been . The pain is currently described as tightness sensation. He is rating his discomfort 1/10. The pain is radiating into the bilateral lateral neck, the left shoulder and upper arm and across his thoracic back. He has not identified any aggravating factors related to the pain. Nitroglycerin improved his discomfort. Associated with his pain he did report he was feeling short of breath, he became diaphoretic, he was nauseated without vomiting and reports paresthesias to the face. Patient reports the symptoms is currently having are exactly like his previous [place] symptoms in 2011. 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 Patient denies fevers, chills, skin eruptions, skin color changes, upper respiratory tract symptoms, wheezing, cough, orthopnea, dependent edema, previous clots, claudication, cramping, recent surgery/inactivity/extended travel, abdominal pain, diarrhea, constipation, rectal bleeding, black/tarry stools, urinary symptoms. Review of Systems: As noted above in history of present illness. All body systems were reviewed and found to be negative as noted above. Past Medical History: (1) Cervical Spinal Stenosis (2) Coron Atheroscler Nos Type Vessel, [place] Or Graft (3) Esophageal Reflux (4) GI bleed (5) Gouty Arthropathy, Unspecified (6) Hyperlipidemia Nec/Nos (7) Hypertension Nos (8) Malign Neopl Prostate (9) Tobacco Use Disorder Surgical Problems: (1) Percutaneous Translum Coron Angioplasty Status Current Medications: Medications Dose Route/Sig Max Daily Dose Days Date Category Aspirin 81 (Aspirin) 81 Mg Tab 81 Mg PO QAM 11/22/16 Reported Zyloprim (Allopurinol) 100 Mg Tab 100 Mg PO DAILY 11/22/16 Reported Cozaar (Losartan Potassium) 50 Mg Tab 50 Mg PO BID 07/14/15 Reported Norvasc (Amlodipine Besylate) 10 Mg Tab 10 Mg PO QAM 07/14/15 Reported Gabapentin 400 Mg Cap 400 Mg PO BID 07/14/15 Reported Hctz (Hydrochlorothiazide) 25 Mg Tab 25 Mg PO QAM 01/01/13 Reported Lipitor (Atorvastatin Calcium) 40 Mg Tab 40 Mg PO QPM 01/01/13 Reported Protonix (Pantoprazole Sodium) 40 Mg Tab 40 Mg PO QAM 03/07/11 Reported Allergies to Medications: Lisinopril. Social History: Patient is currently employed; he feels safe in his home environment; he denies tobacco use; he admits to alcohol use. Physical Examination: Vital Signs: Date Time Temp Pulse Resp B/P Pulse Ox O2 Delivery O2 Flow Rate FiO2 11/22/16 11:23 63 18 145/67 97 11/22/16 10:54 36.8 63 15 119/58 96 Room Air 11/22/16 10:34 59 16 119/58 95 Room Air 11/22/16 10:10 54 16 120/74 99 Room Air 126/68 11/22/16 09:52 59 16 112/63 96 Room Air 11/22/16 09:20 66 11/22/16 09:10 36.4 73 16 107/63 96 Room Air GENERAL: 71-year-old male in mild to moderate distress due to symptoms, nontoxic -appearing, afebrile and hemodynamically stable. NEUROLOGICAL: Awake, alert and oriented to person, place and time. Answering questions appropriately and following commands. Normal gait. Good hand eye coordination. SKIN: Warm, moist and pink. No soft tissue eruptions or trauma noted. HEENT: Atraumatic and normocephalic. PERRLA. Sclera white and conjunctiva pink. Oral cavity moist and pink. Pharynx is nonerythematous or edematous. Speech normal. No lymphadenopathy. Trachea midline. No jugular venous distention. BACK: No tenderness over the bony spine. No CVA tenderness. THORAX: Lungs sounds are clear to auscultation and equal bilaterally with symmetrical chest wall. No wheezing, rales or rhonchi. No crepitus, tenderness , subcutaneous air or deformities noted. HEART: Bradycardic, regular rate and rhythm. No gallops, rubs or murmurs are appreciated. No lifts, heaves or thrills. PMI is not displaced. ABDOMEN: Flat, soft and nontender. Positive bowel sounds in all quadrants. No guarding, rigidity or organomegaly. EXTREMITIES: Moves all extremities well on command and with purpose. All distal neurovascular statuses are intact and equal bilaterally. No dependent edema or calf tenderness/cords. Distal upper and lower extremity pulses are intact and equal bilaterally. ED Course: Patient is assessed as noted above. Laboratory Testing: Test 11/22/16 09:20 11/22/16 09:33 Range/Units White Blood Count 8.86 4.8-10.8 K/uL Red Blood Count 4.30 4.7-6.1 M/uL Hemoglobin 14.0 14.0-18.0 g/dL Hematocrit 41.9 42-52 % Mean Corpuscular Volume 97.4 80-100 fL Mean Corpuscular Hemoglobin 32.6 25-34 pg Mean Corpuscular Hemoglobin Concent 33.4 32-36 g/dl Platelet Count 187 130-400 K/uL Mean Platelet Volume 11.2 7.4-10.4 fL Neutrophils (%) (Auto) 49.6 % Lymphocytes (%) (Auto) 37.6 % Monocytes (%) (Auto) 7.9 % Eosinophils (%) (Auto) 4.2 % Basophils (%) (Auto) 0.6 % Neutrophils # (Auto) 4.40 1.4-6.5 K/uL Lymphocytes # (Auto) 3.33 1.2-3.4 K/uL Monocytes # (Auto) 0.70 0.11-0.59 K/uL Eosinophils # (Auto) 0.37 0-0.5 K/uL Basophils # (Auto) 0.05 0-0.2 K/uL RDW Standard Deviation 47.4 36.4-46.3 fL RDW Coefficient of Variation 13.3 11.5-14.5 % Immature Granulocyte % (Auto) 0.1 % Immature Granulocyte # (Auto) 0.01 0.00-0.02 K/uL Prothrombin Time 10.7 9.0-12.0 SECONDS Prothromb Time International Ratio 1.0 0.9-1.1 Sodium Level 141 136-145 mmol/L Potassium Level 3.4 3.5-5.1 mmol/L Chloride Level 104 98-107 mmol/L Carbon Dioxide Level 23 21-32 mmol/L Anion Gap 14.0 3-11 mmol/L Blood Urea Nitrogen 18 7-18 mg/dl Creatinine 1.30 0.60-1.40 mg/dl Est Creatinine Clear Calc Drug Dose 67.8 ml/min Estimated GFR () 64.5 Estimated GFR (Non- 55.7 BUN/Creatinine Ratio 13.7 10-20 Random Glucose 128 70-99 mg/dl Calcium Level 8.7 8.5-10.1 mg/dl Total Bilirubin 0.5 0.2-1 mg/dl Direct Bilirubin 0.1 0-0.2 mg/dl Aspartate Amino Transf (AST/SGOT) 18 15-37 U/L Alanine Aminotransferase (ALT/SGPT) 34 12-78 U/L Alkaline Phosphatase 97 45-117 U/L Total Creatine Kinase 124 39-308 U/L Creatine Kinase MB 1.8 0.5-3.6 ng/ml Creatine Kinase MB Ratio 1.5 0-3.0 Total Protein 7.7 6.4-8.2 gm/dl Albumin 3.7 3.4-5.0 gm/dl Lipase 157 73-393 U/L Bedside Troponin I 0.000 0-0.045 ng/ml Chest X-Rays: Were read by myself and shows no acute infiltrates, effusions or pneumothorax. Mild cardiomegaly. Normal bony anatomy. Chest CTA: Was reviewed by myself and read by the radiologist showing no evidence of aortic dissection. A 3 mm right apical pulmonary nodule was noted and follow-up was suggested. EKG: Was read by myself and reviewed with Dr. Clifton; shows sinus bradycardia with ventricular rate 54 bpm. Normal axis, intervals and complexes. No acute ST changes indicating ischemia, injury or infarction. Patient was hydrated with normal saline. Patient was reassessed multiple times during his stay in the emergency department. Patient is was reviewed with Dr. Clifton; we agreed on diagnostic approach, treatment, disposition and plan. Patient's case was consulted with case management and Dr. Aragon, [facility]; for medical observation/admission. Patient was educated about tonight's findings. Clinical Impression: Acute chest pain. Decision-Making: Myocardial infarction, aortic aneurysm, pneumothorax, pneumonia , pulmonary embolism, musculoskeletal disorder and other causes. Disposition and Plan: Patient to be brought in the hospital by the hospitalist; please see their notes and orders for final disposition and plan.
--- NOTE | 2016-11-23 11:32 | Discharge Summary ---
Discharge Summary Date of Service Nov 23, 2016. Discharge Summary Admission Date: Nov 22, 2016 at 11:35 Discharge Date: Nov 23, 2016 Discharge Disposition: Home Principal Diagnosis: Chest discomfort Problems/Secondary Diagnoses: 1. Lung nodule 2. Hypokalemia 3. CAD s/p STEMI in 2011 4. HTN 5. HDL 6. Pre-diabetic 7. GERD 8. Gout 9. Lumbar radiculopathy Immunizations: Have You Had Influenza Vaccine: No History of Tetanus Vaccine?: Unknown History of Pneumococcal: No History of Hepatitis B Vaccine: No Procedures: CHEST ONE VIEW PORTABLE CLINICAL HISTORY: CHEST PAIN dyspnea COMPARISON STUDY: No previous studies for comparison. FINDINGS: Mild cardia megaly. Diaphragms smooth. Lungs are clear. IMPRESSION: Mild cardiomegaly. Otherwise negative study Electronically signed by: Dony Khan M.D. 11/22/2016 10:16 AM Dictated Date/Time: 11/22/2016 10:15 AM The status of this report is Signed. Draft = Not yet reviewed or approved by Radiologist. Signed = Reviewed and approved by Radiologist. CHEST CTA for AORTIC DISSECTION CT DOSE: 1853.13 mGy.cm HISTORY: Back pain. Facial paresthesias. Assess for dissection. TECHNIQUE: Multiaxial CT images of the chest were performed both before and after the intravenous administration of contrast to evaluate the aorta. Maximal intensity projection images were also obtained. COMPARISON STUDY: Chest 11/22/2016. FINDINGS: Normal caliber thoracic aorta with no evidence for dissection. The main pulmonary arteries are patent. No pleural or pericardial effusions. The heart is top normal in size. The central airways are patent. No pneumothorax. A 3 mm right apical pulmonary nodule on image 86. Mild dependent changes seen at the lung bases. Hepatic steatosis. The visualized spleen and adrenal glands are unremarkable. No mediastinal or hilar lymphadenopathy. IMPRESSION: 1. No evidence for an aortic dissection. 2. A 3 mm right apical pulmonary nodule. Please refer to the chart below for recommended follow-up. Please refer to below summary of Fleischner criteria recommendations for follow-up of incidental CT nodules (Alonso Stanford, Guidelines for management of small pulmonary nodules detected on CT scans: A statement from the Fleischner Society, Radiology 237: [phone].) Low Risk Patient: Minimal or no smoking or other known risk factors for malignancy <=4 mm: No follow-up needed. >4-6 mm: Initial follow-up CT at 12 months; if unchanged, no further follow-up. >6-8 mm: Initial follow-up CT at 6-12 months then at 18-24 months if no change. >8 mm: Follow-up CT at \R\3, 9, 24 months, or PET and/or biopsy. High Risk Patient: History of smoking or other known risk factors <=4 mm: Follow-up at 12 months; if unchanged, no further follow-up. >4-6 mm: Initial follow-up CT at 6-12 months then at 18-24 months if no change. >6-8 mm: Initial follow-up CT at 3-6 months then at 9-12 and 24 months if no change. >8 mm: Same as low risk patient. Note: Nodule size measured as average of length and width. Ground glass or partly solid nodules may require longer follow-up to exclude indolent adenocarcinoma. Electronically signed by: Ashu Pulliam M.D. 11/22/2016 10:43 AM Dictated Date/Time: 11/22/2016 10:36 AM The status of this report is Signed. Draft = Not yet reviewed or approved by Radiologist. Signed = Reviewed and approved by Radiologist. CT HEAD WITHOUT CONTRAST (CT) CLINICAL HISTORY: Dizziness, pressure COMPARISON STUDY: No previous studies for comparison. TECHNIQUE: Axial CT of the brain is performed from the vertex to the skull base. IV contrast was not administered for this examination. CT DOSE: 884.08 mGy.cm FINDINGS: No intra or extra-axial mass lesions are visualized. There is no CT evidence of acute cortical infarction. There is no evidence of midline shift. There is no acute hemorrhage. No calvarial fractures are visualized. There are patchy white matter hypodensities likely on a small vessel basis. There is no evidence of pathologic ventricular dilatation. There is mild maxillary mucosal thickening. There is ethmoid sinus mucosal thickening IMPRESSION: No acute intracranial findings Electronically signed by: Javid Ramires M.D. 11/22/2016 1:46 PM Dictated Date/Time: 11/22/2016 1:42 PM The status of this report is Signed. Draft = Not yet reviewed or approved by Radiologist. Signed = Reviewed and approved by Radiologist. Stress ECHO Interpretation Summary * Conclusions -- * Normal stress echocardiogram at 10.1 METS and a peak heart rate of 96% maximum predicted. * No exercise induced chest pain. * No ECG changes over the baseline abnormality. * Baseline echocardiogram notes normal left ventricular systolic function and an inferoposterior wall motion abnormality. Procedure Details * ECHOEX, CPT #[id number] * ECHO COLOR FLOW, CPT #[id number] * ECHO DOPPLER, CPT #[id number] * A contrast injection of Definity was performed to improve assessment of LV function. * Contrast was injected into an intravenous site in the left arm. * One vial of Definity ultrasound contrast was diluted in normal saline to a total volume of 10 ml. A total of '4' ml of solution was administered during imaging. * Lot # [id number] of Definity utilized for procedure. * Expiration date . * The attending nurse who injected the contrast agent was Agapito Crhistina RN. Left Ventricular Findings with Stress * Stress echocardiogram notes hyperdynamic systolic function of all wall excluding the akinetic segment. Left Ventricle * The left ventricle is normal in size. * There is mild concentric left ventricular hypertrophy. * Left ventricular systolic function is normal. * Ejection Fraction = 60-65%. * Akinetic segment involving the proximal inferoposterior wall. Right Ventricle * The right ventricle is grossly normal size. * The right ventricular systolic function is normal as assessed by tricuspid annular plane systolic excursion (TAPSE) (normal >1.5 cm). Atria * The left atrium is mildly dilated. * Right atrium not well visualized. * No ASD detected; PFO is not assessed. Mitral Valve * The mitral valve anatomy is normal. * There is no mitral valve stenosis. * There is mild mitral regurgitation. Tricuspid Valve * The tricuspid valve is not well visualized, but is grossly normal. * There is no tricuspid stenosis. * There is mild tricuspid regurgitation. Aortic Valve * The aortic valve is normal in structure and function. * No hemodynamically significant valvular aortic stenosis. * There is no significant aortic regurgitation. Pulmonic Valve * The pulmonary valve is not well seen, but the Doppler examination is normal without significant regurgitation or stenosis. * Trace pulmonic valvular regurgitation. Great Vessels * The aortic root is normal size. * The pulmonary is not well visualized. Pericardium * There is no pericardial effusion. Stress Parameters * Baseline ECG notes normal sinus rhythm, low voltage, and a nonspecific ST abnormality. * Stress ECG: No ST changes. No arrhythmias. * The stress portion of this study was personally supervised by the undersigned interpreting physician. * Rest heart rate was '55' BPM. * Rest blood pressure was '140/67' * Maximum heart rate achieved was 148 bpm. * Maximum heart rate was 98 % of maximum age-predicted heart rate. * Maximum blood pressure was '233/70' * Total exercise time was '8:17' * Maximum exercise MET level achieved was '10.1' METS * Maximum treadmill speed was '3.4' miles per hour. * Maximum treadmill elevation was '14'% grade. * Exercise was terminated due to 'fatigue after achieving target heart rate' * Normal blood pressure response to exercise. Left Ventricular Diastolic Function * Grade I diastolic dysfunction, (abnormal relaxation pattern). MMode 2D Measurements and Calculations IVSd 1.0 cm IVSs 1.3 cm LVIDd 4.2 cm LVIDs 2.5 cm LVPWd 1.0 cm LVPWs 1.4 cm IVS/LVPW 1.0 FS 39.3 % EDV(Teich) 76.7 ml ESV(Teich) 22.9 ml EF(Teich) 70.2 % EDV(cubed) 71.9 ml ESV(cubed) 16.1 ml EF(cubed) 77.6 % % IVS thick 24.2 % % LVPW thick 35.7 % LV mass(C)d 139.7 grams LV mass(C)dI 61.3 grams/m\S\2 LV mass(C)s 103.1 grams LV mass(C)sI 45.3 grams/m\S\2 CO(Teich) 2.9 l/min CI(Teich) 1.3 l/min/m\S\2 SV(Teich) 53.9 ml SI(Teich) 23.7 ml/m\S\2 CO(cubed) 3.0 l/min CI(cubed) 1.3 l/min/m\S\2 SV(cubed) 55.8 ml SI(cubed) 24.5 ml/m\S\2 Ao root diam 3.8 cm Ao root area 11.5 cm\S\2 ACS 2.0 cm LA dimension 3.9 cm LA/Ao 1.0 LVAd ap4 40.2 cm\S\2 LVLd ap4 9.4 cm EDV(MOD-sp4) 142.0 ml LVAs ap4 20.1 cm\S\2 LVLs ap4 7.3 cm ESV(MOD-sp4) 46.0 ml EF(MOD-sp4) 67.6 % LVAd ap2 36.9 cm\S\2 LVLd ap2 10.1 cm EDV(MOD-sp2) 113.0 ml LVAs ap2 19.7 cm\S\2 LVLs ap2 8.0 cm ESV(MOD-sp2) 42.0 ml EF(MOD-sp2) 62.8 % CO(MOD-sp4) 5.1 l/min CI(MOD-sp4) 2.2 l/min/m\S\2 SV(MOD-sp4) 96.0 ml SI(MOD-sp4) 42.2 ml/m\S\2 CO(MOD-sp2) 3.8 l/min CI(MOD-sp2) 1.7 l/min/m\S\2 SV(MOD-sp2) 71.0 ml SI(MOD-sp2) 31.2 ml/m\S\2 Doppler Measurements and Calculations MV E max armin 84.9 cm/sec MV A max armin 70.1 cm/sec MV E/A 1.2 MV P1/2t max armin 85.6 cm/sec MV P1/2t 92.1 msec MVA(P1/2t) 2.4 cm\S\2 MV dec slope 272.2 cm/sec\S\2 MV dec time 0.22 sec Ao V2 max 124.5 cm/sec Ao max PG 6.2 mmHg Ao max PG (full) 2.2 mmHg LV V1 max PG 4.0 mmHg LV V1 max 99.8 cm/sec PA V2 max 96.6 cm/sec PA max PG 3.7 mmHg PI max armin 161.8 cm/sec PI max PG 10.5 mmHg PI dec slope 122.8 cm/sec\S\2 PI P1/2t 385.9 msec TR max armin 262.2 cm/sec Consultations: Cardiology- Dr. Germain Medication Reconciliation Continued Medications: Allopurinol (Zyloprim) 100 Mg Tab 100 MG PO DAILY, TAB Amlodipine (Norvasc) 10 Mg Tab 10 MG PO QAM, TAB Aspirin (Aspirin 81) 81 Mg Tab 81 MG PO QAM Atorvastatin (Lipitor) 40 Mg Tab 40 MG PO QPM, TAB Gabapentin (Gabapentin) 400 Mg Cap 400 MG PO BID, #90 Hydrochlorothiazide (Hctz) 25 Mg Tab 25 MG PO QAM, TAB Losartan Potassium (Cozaar) 50 Mg Tab 50 MG PO BID, TAB Pantoprazole (Protonix) 40 Mg Tab 40 MG PO QAM, #30 0 Refills Referrals At Discharge Follow up Referrals: Family Practice Referral - Within 1 Week with Erik Salinas M.D. Discharge Exam Review of Systems: Constitutional: No chills, No fatigue, No fever, No sweats, No weakness ENT: No hearing loss Respiratory: No cough, No hemoptysis, No shortness of breath Cardiovascular: No chest pain, No edema, No palpitations Musculoskeletal: No calf pain, No joint pain, No muscle pain, No swelling Genitourinary - Male: No dysuria, No hematuria Neurologic: No weakness Psychiatric: No anxiety, No depression symptoms Hematologic / Lymphatic: No abnormal bleeding/bruising Integumentary: No itch, No new/changing skin lesions, No rash Physical Exam: General Appearance: no apparent distress Eyes: normal inspection, PERRL ENT: hearing grossly normal Neck: supple Respiratory/Chest: lungs clear, no respiratory distress, no accessory muscle use Cardiovascular: regular rate, rhythm, normal peripheral pulses Abdomen / GI: normal bowel sounds, non tender, soft Extremities: no calf tenderness, no pedal edema Neurologic/Psychiatric: alert, normal mood/affect, oriented x 3 Skin: normal color, warm/dry, no rash Hospital Course 71 y/o male, with PMHx of CAD s/p STEMI in 2011 with stent placement x2 (left circumflex and obtuse marginal), HTN, HDL, pre-diabetic, and GERD, who presented to the ED because of chest discomfort. Acute cardiac event r/o: - Admit to tele observation for cardiac monitoring--> reviewed- no acute events overnight, sinus bradycardia - Trend cardiac enzymes - Stress ECHO - IV NSS @ 125 ml/hr x1 bag - Bradycardia- per patient, HR normally mid-high 50s - Consulted cardiology, appreciate recommendations Headache: head CT unremarkable Lung nodule seen on chest CT: recommend 12 month follow-up Hypokalemia: Replace with 20 mEq KCL supplement x1. Follow PRP and replete PRN CAD s/p STEMI in 2011: - Continue ASA 81 mg - ECHO November 2014- EF 50-55%, grade I diastolic dysfunction, mid inferior wall mild hypokinesis, trace TR, trace IN - Follows with Dr. Valentine HTN: Continue Losartan 50 mg BID, HCTZ 25 mg daily, and Norvasc 10 mg HDL: - Continue Lipitor 40 mg daily - Lipid panel July 2016- triglycerides 83, total cholesterol 130, HDL 61, LDL 52 Pre-diabetic, diet controlled: ha1c July 2016= 5.8 GERD: Continue Protonix daily Gout: Continue Allopurinol 100 mg daily Lumbar radiculopathy: Continue Gabapentin 400 mg BID GI Prophylaxis: Maalox PRN, IV Zofran PRN, Colace and/or Milk of Mag PRN DVT prophylaxis: Lovenox 40 mg SQ q24 hrs, CHRISTIANO and SCDs Code Status: LEVEL I, FULL Dispo: Discharge to home Total Time Spent: Greater than 30 minutes This includes examination of the patient, discharge planning, medication reconciliation, and communication with other providers. Discharge Instructions Please refer to the electronic Patient Visit Report (Discharge Instructions) for additional information. Follow-Up Please follow-up with your PCP within 5-7 days Please follow-up/keep all of your subspecialty appointments Additional Copies To Murtaza Valentine MD, PhD; Pro,Erik Palafox M.D.
--- NOTE | 2016-11-23 11:41 | Discharge Instructions ---
Discharge Instructions Date of Service Nov 23, 2016. Admission Reason for Admission: Chest Pain Discharge Discharge Diagnosis / Problem: Chest pain Discharge Goals Goal(s): Decrease discomfort, Diagnostic testing, Therapeutic intervention, Prevent Disease Progression Activity Recommendations Activity Limitations: resume your previous activity . Instructions / Follow-Up Instructions / Follow-Up Resume all regular home medications as prescribed to you Please follow-up with your PCP within 5-7 days Please call to schedule a follow-up appointment with Dr. Valentine in 1-2 weeks Please follow-up/keep all of your subspecialty appointments Current Hospital Diet Patient's current hospital diet: AHA Diet (Heart Healthy) Discharge Diet Recommended Diet: AHA Diet (Heart Healthy) Procedures Procedures Performed: 1. Chest x-ray 2. Chest CT 3. Head CT 4. Stress echocardiogram Pending Studies Studies pending at discharge: no Laboratory Results Last 24 Hours Test 11/22/16 17:30 11/22/16 17:33 11/23/16 01:30 11/23/16 01:40 Creatine Kinase MB Ratio Creatine Kinase MB 1.1 ng/ml 0.8 ng/ml Troponin I < 0.015 ng/ml < 0.015 ng/ml Test 11/23/16 07:16 White Blood Count 6.28 K/uL Red Blood Count 4.18 M/uL Hemoglobin 14.0 g/dL Hematocrit 41.2 % Mean Corpuscular Volume 98.6 fL Mean Corpuscular Hemoglobin 33.5 pg Mean Corpuscular Hemoglobin Concent 34.0 g/dl RDW Standard Deviation 47.4 fL RDW Coefficient of Variation 13.2 % Platelet Count 157 K/uL Mean Platelet Volume 11.4 fL Sodium Level 143 mmol/L Potassium Level 3.5 mmol/L Chloride Level 107 mmol/L Carbon Dioxide Level 25 mmol/L Anion Gap 11.0 mmol/L Blood Urea Nitrogen 14 mg/dl Creatinine 1.10 mg/dl Est Creatinine Clear Calc Drug Dose 79.8 ml/min Estimated GFR () 79.0 Estimated GFR (Non- 68.1 BUN/Creatinine Ratio 12.7 Random Glucose 100 mg/dl Calcium Level 8.3 mg/dl Magnesium Level 1.9 mg/dl Medical Emergencies . Who to Call and When: Medical Emergencies: If at any time you feel your situation is an emergency, please call 911 immediately. . Non-Emergent Contact Non-Emergency issues call your: Primary Care Provider Call Non-Emergent contact if: you have a fever, your pain is unusual for you, your pain is concerning you, you have any medication questions . . "Provider Documentation" section prepared by Bel Quinn. VTE Core Measure Inpt VTE Proph given/why not?: Enoxaparin (Lovenox)ADA, TColleenEPadmaja. Stockings, SCD's
[2016-11-23 11:48] VITALS: BP 143/76; PULSE 49; TEMP 36.6; O2SAT 95
--- NOTE | 2016-11-23 12:16 | EXERCISE STRESS ECHO ---
*NOTICE TO RECEIVING [employer] This information is strictly Confidential and protected under [place] law. [place] law prohibits you from making any further disclosure of this information unless further disclosure is expressly permitted by the written consent of the person to whom it pertains or is authorized by law. A general authorization for the release of medical or other information is not sufficient for this purpose. Hospital accepts no responsibility if the information is made available to any other person, INCLUDING THE PATIENT. Interpretation Summary * Conclusions -- * Normal stress echocardiogram at 10.1 METS and a peak heart rate of 96% maximum predicted. * No exercise induced chest pain. * No ECG changes over the baseline abnormality. * Baseline echocardiogram notes normal left ventricular systolic function and an inferoposterior wall motion abnormality. Procedure Details * ECHOEX, CPT #[id number] * ECHO COLOR FLOW, CPT #[id number] * ECHO DOPPLER, CPT #[id number] * A contrast injection of Definity was performed to improve assessment of LV function. * Contrast was injected into an intravenous site in the left arm. * One vial of Definity ultrasound contrast was diluted in normal saline to a total volume of 10 ml. A total of '4' ml of solution was administered during imaging. * Lot # [id number] of Definity utilized for procedure. * Expiration date . * The attending nurse who injected the contrast agent was Agapito Christina RN. Left Ventricular Findings with Stress * Stress echocardiogram notes hyperdynamic systolic function of all wall excluding the akinetic segment. Left Ventricle * The left ventricle is normal in size. * There is mild concentric left ventricular hypertrophy. * Left ventricular systolic function is normal. * Ejection Fraction = 60-65%. * Akinetic segment involving the proximal inferoposterior wall. Right Ventricle * The right ventricle is grossly normal size. * The right ventricular systolic function is normal as assessed by tricuspid annular plane systolic excursion (TAPSE) (normal >1.5 cm). Atria * The left atrium is mildly dilated. * Right atrium not well visualized. * No ASD detected; PFO is not assessed. Mitral Valve * The mitral valve anatomy is normal. * There is no mitral valve stenosis. * There is mild mitral regurgitation. Tricuspid Valve * The tricuspid valve is not well visualized, but is grossly normal. * There is no tricuspid stenosis. * There is mild tricuspid regurgitation. Aortic Valve * The aortic valve is normal in structure and function. * No hemodynamically significant valvular aortic stenosis. * There is no significant aortic regurgitation. Pulmonic Valve * The pulmonary valve is not well seen, but the Doppler examination is normal without significant regurgitation or stenosis. * Trace pulmonic valvular regurgitation. Great Vessels * The aortic root is normal size. * The pulmonary is not well visualized. Pericardium * There is no pericardial effusion. Stress Parameters * Baseline ECG notes normal sinus rhythm, low voltage, and a nonspecific ST abnormality. * Stress ECG: No ST changes. No arrhythmias. * The stress portion of this study was personally supervised by the undersigned interpreting physician. * Rest heart rate was '55' BPM. * Rest blood pressure was '140/67' * Maximum heart rate achieved was 148 bpm. * Maximum heart rate was 98 % of maximum age-predicted heart rate. * Maximum blood pressure was '233/70' * Total exercise time was '8:17' * Maximum exercise MET level achieved was '10.1' METS * Maximum treadmill speed was '3.4' miles per hour. * Maximum treadmill elevation was '14'% grade. * Exercise was terminated due to 'fatigue after achieving target heart rate' * Normal blood pressure response to exercise. Left Ventricular Diastolic Function * Grade I diastolic dysfunction, (abnormal relaxation pattern). MMode 2D Measurements and Calculations IVSd 1.0 cm IVSs 1.3 cm LVIDd 4.2 cm LVIDs 2.5 cm LVPWd 1.0 cm LVPWs 1.4 cm IVS/LVPW 1.0 FS 39.3 % EDV(Teich) 76.7 ml ESV(Teich) 22.9 ml EF(Teich) 70.2 % EDV(cubed) 71.9 ml ESV(cubed) 16.1 ml EF(cubed) 77.6 % % IVS thick 24.2 % % LVPW thick 35.7 % LV mass(C)d 139.7 grams LV mass(C)dI 61.3 grams/m\S\2 LV mass(C)s 103.1 grams LV mass(C)sI 45.3 grams/m\S\2 CO(Teich) 2.9 l/min CI(Teich) 1.3 l/min/m\S\2 SV(Teich) 53.9 ml SI(Teich) 23.7 ml/m\S\2 CO(cubed) 3.0 l/min CI(cubed) 1.3 l/min/m\S\2 SV(cubed) 55.8 ml SI(cubed) 24.5 ml/m\S\2 Ao root diam 3.8 cm Ao root area 11.5 cm\S\2 ACS 2.0 cm LA dimension 3.9 cm LA/Ao 1.0 LVAd ap4 40.2 cm\S\2 LVLd ap4 9.4 cm EDV(MOD-sp4) 142.0 ml LVAs ap4 20.1 cm\S\2 LVLs ap4 7.3 cm ESV(MOD-sp4) 46.0 ml EF(MOD-sp4) 67.6 % LVAd ap2 36.9 cm\S\2 LVLd ap2 10.1 cm EDV(MOD-sp2) 113.0 ml LVAs ap2 19.7 cm\S\2 LVLs ap2 8.0 cm ESV(MOD-sp2) 42.0 ml EF(MOD-sp2) 62.8 % CO(MOD-sp4) 5.1 l/min CI(MOD-sp4) 2.2 l/min/m\S\2 SV(MOD-sp4) 96.0 ml SI(MOD-sp4) 42.2 ml/m\S\2 CO(MOD-sp2) 3.8 l/min CI(MOD-sp2) 1.7 l/min/m\S\2 SV(MOD-sp2) 71.0 ml SI(MOD-sp2) 31.2 ml/m\S\2 Doppler Measurements and Calculations MV E max armin 84.9 cm/sec MV A max armin 70.1 cm/sec MV E/A 1.2 MV P1/2t max armin 85.6 cm/sec MV P1/2t 92.1 msec MVA(P1/2t) 2.4 cm\S\2 MV dec slope 272.2 cm/sec\S\2 MV dec time 0.22 sec Ao V2 max 124.5 cm/sec Ao max PG 6.2 mmHg Ao max PG (full) 2.2 mmHg LV V1 max PG 4.0 mmHg LV V1 max 99.8 cm/sec PA V2 max 96.6 cm/sec PA max PG 3.7 mmHg PI max armin 161.8 cm/sec PI max PG 10.5 mmHg PI dec slope 122.8 cm/sec\S\2 PI P1/2t 385.9 msec TR max armin 262.2 cm/sec
[2017-05-17] MEDS ORDERED: GABA1CAP5 PO (12:06)
[2017-05-17] MEDS ORDERED: PRAV20TA PO (12:06)
[2017-05-17] MEDS ORDERED: AMLO-114 PO (12:06)
== END 2016-11-23 12:19 | disposition home or self-care (01) ==
LOC: ENRESERVTM → ENRESERVDT → C.EDB 09:06 → C.2T 11:35
PROVIDERS: ADMIT Internal Medicine; ATTEND Internal Medicine
DX: R07.9 Chest pain, unspecified (principal); I25.10 Atherosclerotic heart disease of native coronary artery without angina pectoris; I25.2 Old myocardial infarction; Z95.5 Presence of coronary angioplasty implant and graft; I10 Essential (primary) hypertension; E78.5 Hyperlipidemia, unspecified; G47.33 Obstructive sleep apnea (adult) (pediatric); R91.1 Solitary pulmonary nodule; E87.6 Hypokalemia; R73.03 Prediabetes; M10.9 Gout, unspecified; M54.16 Radiculopathy, lumbar region; Z82.49 Family history of ischemic heart disease and other diseases of the circulatory system; Z83.3 Family history of diabetes mellitus

== ENCOUNTER → 2017-02-10 | Outpatient (CLI) | payer OTHER ==
[~2017-02-10] MED LIST changes: -ALL100 PO; +ALLO100T PO; +ASPI-435 PO; +GABA1CAP5 PO; +PRAV20TA PO
[2017-02-10 10:20] LABS: ALT/SGPT 38 U/L (12-78); AST/SGOT 24 U/L (15-37); BLOOD UREA NITROGEN 25 mg/dl (7-18); BUN/CREATININE RATIO 19.1 (10-20); CARBON DIOXIDE 29 mmol/L (21-32); CHLORIDE 103 mmol/L (98-107); CHOLESTEROL 116 mg/dl (0-200); GLUCOSE 109 mg/dl (70-99); POTASSIUM 3.5 mmol/L (3.5-5.1); SODIUM 139 mmol/L (136-145); TRIGLYCERIDES 90 mg/dl (0-150); VERY LOW DENSITY LIPOPROT CALC 18 mg/dl
[2017-02-10 10:21] LABS: CALCIUM 9.3 mg/dl (8.5-10.1); ESTIMATED AVERAGE GLUCOSE 128 mg/dl; HA1C FLAG Normal (Normal)
[2017-02-10 10:22] LABS: CHOLESTEROL/HDL RATIO 2.2; HDL CHOLESTEROL 52 mg/dl; LDL CHOLESTEROL CALCULATED 46 mg/dl
--- NOTE | 2017-02-18 09:54 | CODING QUERY MEDICAL NECESSITY ---
CQSUPPORTING DIAGNOSIS NEEDED A supporting diagnosis is required for the test/procedure performed on this patient in order for us to be reimbursed by the patient's insurance. Please provide a supporting diagnosis for the following test/procedure listed below next to the test name along with your signature. *If there is no additional diagnosis for this patient that would support the following test/procedure please document that below next to the test/procedure. Test(s)/Procedure(s) that require a supporting diagnosis: DOS 02/10/17 GLYCATED HEMOGLOBIN Provider Signature: Date: Thank you Elayne Hitchcock [employer] Once completed, please kindly fax back to [phone] For questions please call [phone]
== END | disposition home or self-care (01) ==
LOC: C.LAB 06:35
PROVIDERS: ATTEND Internal Medicine
DX: E78.5 Hyperlipidemia, unspecified (principal); I10 Essential (primary) hypertension; R73.03 Prediabetes; R73.9 Hyperglycemia, unspecified

== ENCOUNTER → 2017-02-23 | Outpatient (CLI) | payer OTHER ==
--- NOTE | 2017-02-23 12:03 | DIAGNOSTIC IMAGING REPORT ---
Right popliteal fossa ultrasound CLINICAL HISTORY: M25.569 by posterior knee pain COMPARISON STUDY: No previous studies for comparison. FINDINGS: There is a small complex right popliteal cyst containing a presumed area of calcification measuring 37 x 57 x 16 mm. IMPRESSION: Complex popliteal cyst measuring 37 x 57 x 16 mm. This appears to contain a shadowing calcification. Electronically signed by: Javid Ramires M.D. 02/23/2017 12:02 PM Dictated Date/Time: 02/23/2017 12:00 PM
== END ==
LOC: C.ULTR 11:29
PROVIDERS: ATTEND Internal Medicine
DX: M71.21 Synovial cyst of popliteal space [Baker], right knee (principal)

== ENCOUNTER → 2017-05-30 | Day surgery (SDC) | payer OTHER ==
[2017-05-17 12:06] VITALS: BMI 32.0
[~2017-05-30] VITALS: Ht 180.3 cm; Wt 106.8 kg
[~2017-05-30] MED LIST changes: -ATOR-24 PO; +LIDOCAINE HCL 2% 2 ML VIAL (20MG/ML) ONE; -NRN400 PO; +PROPOFOL IV EMULSION 10 MG/ML 20 ML VIAL IV ONE; +SODIUM CHLORIDE 0.9% 500ML 500 ML IV ONE
[2017-05-30 10:54] VITALS: Ht 180.3 cm; Wt 106.8 kg
--- NOTE | 2017-05-30 11:22 | Endo History and Physical ---
History & Physical Date of Service: May 30, 2017. Chief Complaint: Hx polyps Referring Physician: Dr. Salinas History of Present Illness 71 yo CM who presents for colonoscopy secondary to history of colon polyp. Past Surgical History Hx Cardiac Surgery: Yes (HEART CATH X 2 (TOTAL 4 STENTS PLACED)) Hx Internal Defibrillator: No Hx Pacemaker: No Hx Abdominal Surgery: Yes (INGUINAL HERNIA, POLYP REMOVED) Hx of Implantable Prosthesis: No Hx Post-Op Nausea and Vomiting: No Hx Cancer Surgery: Yes (PROSTATECTOMY) Hx Thoracic Surgery: No Hx Orthopedic: No Hx Urinary Tract Surgery: No Family History None Social History Smoking Status: Former Smoker Hx Substance Use: No Hx Alcohol Use: Yes (OCCASIONALLY) Allergies Coded Allergies: Lisinopril (Verified Adverse Reaction, Unknown, cough, 05/17/17) Current Medications Reported Home Medications Medications Dose Route/Sig Max Daily Dose Days Date Category Neurontin (Gabapentin) 400 Mg Cap 400 Mg PO TID 05/17/17 Reported Norvasc (Amlodipine Besylate) 10 Mg Tab 10 Mg PO HS 05/17/17 Reported Pravachol (Pravastatin Sodium) 20 Mg Tab 20 Mg PO HS 05/17/17 Reported Aspirin 81 (Aspirin) 81 Mg Tab 81 Mg PO QAM 11/22/16 Reported Zyloprim (Allopurinol) 100 Mg Tab 100 Mg PO QAM 11/22/16 Reported Cozaar (Losartan Potassium) 50 Mg Tab 50 Mg PO BID 07/14/15 Reported Hctz (Hydrochlorothiazide) 25 Mg Tab 25 Mg PO QAM 01/01/13 Reported Protonix (Pantoprazole Sodium) 40 Mg Tab 40 Mg PO QAM 03/07/11 Reported Vital Signs Weight (Kilograms): 106.82 Height (Feet): 5 Height (Inches): 11 Date Time Temp Pulse Resp B/P (MAP) Pulse Ox O2 Delivery O2 Flow Rate FiO2 05/30/17 10:50 36.9 59 18 147/62 (90) 100 Room Air Physical Exam General Appearance: WD/WN, no apparent distress Respiratory/Chest: Auscultation: breath sounds normal Cardiovascular: Heart Auscultation: RRR Abdomen: Bowel Sounds: normal Inspection & Palpation: soft, non-distended, no tenderness, guarding & rebound Assessment and Plan Assessment: 71 yo CM who presents for colonoscopy secondary to history of colon polyp. Plan: Proceed with colonoscopy
--- NOTE | 2017-05-30 12:09 | Discharge Instructions ---
Endoscopy Patient Instructions Date / Procedure(s) Performed May 30, 2017. Colonoscopy Allergy Information Coded Allergies: Lisinopril (Verified Adverse Reaction, Unknown, cough, 05/17/17) Discharge Date / Findings May 30, 2017. Colon polyp Internal hemorrhoids Provider Instructions Activity Restrictions - No exercising or heavy lifting for 24 hours. - Do not drink alcohol the day of the procedure. - Do not drive a car or operate machinery until the day after the procedure. - Do not make any important decisions or sign important papers in 24 hours after the procedure. Following Day: - Return to full activity which may include returning to work/school. Diet Start your diet with liquids and light foods (jello, soup, juice, toast). Then eat your usual diet if not nauseated. Treatment For Common After Affects For mild abdominal pain, bloating, or excessive gas: - Rest - Eat lightly - Lie on right side Follow-Up Information Follow-up with Dr. Salinas as scheduled Anesthesia Information What You Should Know You have had a procedure that required some medicine to reduce anxiety and discomfort. This treatment is called moderate sedation. After receiving the treatment, you may be sleepy, but you will be able to breathe on your own. The effects of the treatment may last for several hours. Follow these instructions along with Activity/Diet recommendations noted above: * Do NOT do anything where dizziness or clumsiness would be dangerous. * Rest quietly at home today, then you can be up and about tomorrow. * Have a responsible person stay with you the rest of today. * You may have had an I.V. today. If so, you may take the dressing off later today. Recommendations Call your doctor if: * Trouble breathing * Continuous vomiting for more than 24 hours * Temperature above 101 degrees * Severe abdominal pain or bloating * Pain not relieved by pain medicine ordered * There is increased drainage or redness from any incision * A large amount of rectal bleeding greater than 2-3 tablespoons. (If you had a polyp/s removed or have hemorrhoids, a small amount of blood - from the rectum is to be expected.) * You have any unanswered questions or concerns. IN THE EVENT OF A SERIOUS EMERGENCY, GO TO THE NEAREST EMERGENCY ROOM Your discharge instructions were prepared by provider Bhavesh Edwards. Patient Instructions Signature Page John Andrade Patient (or Guardian) Signature/Date: I have read and understand the instructions given to me by my caregivers. Caregiver/RN/Doctor Signature/Date: The above-named patient and/or guardian has received patient instructions on this date. + Original Patient Signature Page (only) stays with chart. Please make copy for patient.
--- NOTE | 2017-05-30 12:17 | GI REPORT ---
Procedure Date: 05/30/2017 11:33 AM Procedure: Colonoscopy Indications: High risk colon cancer surveillance: Personal history of colonic polyps, Last colonoscopy: May 2016 Medicines: Monitored Anesthesia Care Complications: No immediate complications. Estimated Blood Loss: Estimated blood loss: none. Procedure: Pre-Anesthesia Assessment: - Prior to the procedure, a History and Physical was performed, and patient medications and allergies were reviewed. The patient's tolerance of previous anesthesia was also reviewed. The risks and benefits of the procedure and the sedation options and risks were discussed with the patient. All questions were answered, and informed consent was obtained. Prior Anticoagulants: The patient has taken aspirin, last dose was 1 day prior to procedure. ASA Grade Assessment: III - A patient with severe systemic disease. After reviewing the risks and benefits, the patient was deemed in satisfactory condition to undergo the procedure. After I obtained informed consent, the scope was passed under direct vision. Throughout the procedure, the patient's blood pressure, pulse, and oxygen saturations were monitored continuously. The scope was introduced through the anus and advanced to the terminal ileum. The colonoscopy was performed without difficulty. The patient tolerated the procedure well. The quality of the bowel preparation was good. The terminal ileum, ileocecal valve, appendiceal orifice, and rectum were photographed. Findings: A 5 mm polyp was found in the ascending colon. The polyp was sessile. The polyp was removed with a hot snare. Resection and retrieval were complete. A tattoo was seen in the ascending colon. A post-polypectomy scar was found at the tattoo site. Non-bleeding internal hemorrhoids were found during retroflexion. The hemorrhoids were small. Impression: - One 5 mm polyp in the ascending colon, removed with a hot snare. Resected and retrieved. - A tattoo was seen in the ascending colon. A post-polypectomy scar was found at the tattoo site. - Non-bleeding internal hemorrhoids. Recommendation: - Resume previous diet. - Continue present medications. - Repeat colonoscopy for surveillance based on pathology results. - Return to primary care physician as previously scheduled. Bhavesh Edwards DO 05/30/2017 12:15:53 PM This report has been signed electronically. Note Initiated On: 05/30/2017 11:33 AM I attest to the content of the Intraoperative Record and orders documented therein, exceptions below
--- NOTE | 2017-05-30 12:30 | Anesthesiology Progress Note ---
Anesthesia Post Op Note Date & Time May 30, 2017 at 12:30 Vital Signs Pain Intensity: 0 Vital Signs Past 12 Hours Date Time Temp Pulse Resp B/P (MAP) Pulse Ox O2 Delivery O2 Flow Rate FiO2 05/30/17 12:15 58 16 107/56 (73) 97 Room Air 05/30/17 10:50 36.9 59 18 147/62 (90) 100 Room Air Notes Mental Status: alert / awake / arousable, participated in evaluation Pt Amnestic to Procedure: Yes Nausea / Vomiting: adequately controlled Pain: adequately controlled Airway Patency, RR, SpO2: stable & adequate BP & HR: stable & adequate Hydration State: stable & adequate Anesthetic Complications: no major complications apparent
[2017-05-30 12:45] VITALS: BP 152/72; PULSE 51; O2SAT 98
== END | disposition home or self-care (01) ==
LOC: C.GI 10:32
PROVIDERS: ATTEND Internal Medicine
DX: Z12.11 Encounter for screening for malignant neoplasm of colon (principal); D12.2 Benign neoplasm of ascending colon; K64.8 Other hemorrhoids; Z86.010 Personal history of colon polyps; Z87.891 Personal history of nicotine dependence; Z90.79 Acquired absence of other genital organ(s); Z79.82 Long term (current) use of aspirin

== ENCOUNTER → 2017-08-10 | Outpatient (CLI) | payer OTHER ==
[~2017-08-10] MED LIST changes: -LIDOCAINE HCL 2% 2 ML VIAL (20MG/ML) ONE; -PROPOFOL IV EMULSION 10 MG/ML 20 ML VIAL IV ONE; -SODIUM CHLORIDE 0.9% 500ML 500 ML IV ONE
[2017-08-10 12:06] LABS: AST/SGOT 22 U/L (15-37); BLOOD UREA NITROGEN 14 mg/dl (7-18); CALCIUM 9.1 mg/dl (8.5-10.1); CARBON DIOXIDE 27 mmol/L (21-32); CHLORIDE 100 mmol/L (98-107); CREATININE 1.24 mg/dl (0.60-1.40); GLUCOSE 113 mg/dl (70-99); POTASSIUM 3.7 mmol/L (3.5-5.1); SODIUM 134 mmol/L (136-145); URIC ACID 6.3 mg/dl (2.6-7.2)
[2017-08-10 12:11] LABS: ALT/SGPT 43 U/L (12-78); CHOLESTEROL 160 mg/dl (0-200); CHOLESTEROL/HDL RATIO 2.7; HDL CHOLESTEROL 60 mg/dl; LDL CHOLESTEROL CALCULATED 72 mg/dl; PROSTATE SPECIFIC ANTIGEN < 0.010 ng/ml (0.000-4.000); TRIGLYCERIDES 141 mg/dl (0-150); VERY LOW DENSITY LIPOPROT CALC 28 mg/dl
[2017-08-10 12:33] LABS: ESTIMATED AVERAGE GLUCOSE 123 mg/dl; HA1C FLAG Normal (Normal)
== END | disposition home or self-care (01) ==
LOC: C.LABPBG 08:54
PROVIDERS: ATTEND Urology
DX: Z00.00 Encounter for general adult medical examination without abnormal findings (principal); Z11.59 Encounter for screening for other viral diseases; E78.5 Hyperlipidemia, unspecified; M10.9 Gout, unspecified; C61 Malignant neoplasm of prostate; I10 Essential (primary) hypertension

== ENCOUNTER 2017-09-15 08:20 | Emergency (ER) | payer OTHER ==
[~2017-09-15] VITALS: Ht 180.3 cm; Wt 109.0 kg
[~2017-09-15 08:20] MED LIST changes: -AMLO-114 PO; +AMLO10TA3 PO; +GABA-1220 PO; -GABA1CAP5 PO
[2017-09-15 08:34] VITALS: TEMP 36.7; Ht 180.3 cm; Wt 109.0 kg
--- NOTE | 2017-09-15 08:57 | EMERGENCY ROOM VISIT NOTE ---
History Report prepared by Sigifredo: Doron Turner Under the Supervision of: Dr. Mario Clifton M.D. First contact with patient: 08:52 Chief Complaint: FLU LIKE SX Stated Complaint: SICK IN STOMACH History of Present Illness The patient is a 72 year old male who presents to the Emergency Room with complaints of a worsening illness that started a week ago. He states that his initial symptom was nausea but without any vomiting. The patient notes that 3 days ago, he started getting the chills, and he has been very fatigued. He says that he has no energy, and could "sleep for 3 weeks". He notes that he has been feeling feverish at times. The patient adds that his chest and back hurt, and he has a cough which gives him a headache. Per the patient's , the patient brought up a bit of blood from his cough this morning. He notes no recent sick contacts. The patient denies any abdominal pain, leg pain, or urinary symptoms. He adds that his last bowel movement was 3 days ago, but that is not abnormal for him. He says that he takes an Aspirin daily but no other blood thinners. Source of History: patient, family Onset: A week ago Position: other (global - illness) Timing: worsening Associated Symptoms: + fevers (feels feverish), + chills, + headache, + cough (some blood this morning), + chest pain, + nausea, + back pain, + fatigue , No vomiting, No abdominal pain, No urinary symptoms Note: Associated symptoms: Denies leg pain. Review of Systems All systems have been listed, reviewed, and are negative other than those previously mentioned. Please see Additional Medical History Sheet. Past Medical & Surgical Medical Problems: (1) Cervical Spinal Stenosis (2) Chest pain (3) Coron Atheroscler Nos Type Vessel, [place] Or Graft (4) Esophageal Reflux (5) GI bleed (6) Gouty Arthropathy, Unspecified (7) Hyperlipidemia Nec/Nos (8) Hypertension Nos (9) Malign Neopl Prostate (10) Tobacco Use Disorder Surgical Problems: (1) Percutaneous Translum Coron Angioplasty Status Family History Cancer Diabetes mellitus Heart disease Hypertension Social History Smoking Status: Former Smoker Alcohol Use: occasionally Marital Status: Housing Status: lives with family Occupation Status: retired Current/Historical Medications Scheduled Allopurinol (Zyloprim), 100 MG PO QAM Amlodipine (Norvasc), 10 MG PO HS Aspirin (Aspirin 81), 81 MG PO QAM Azithromycin (Zithromax), 250 MG PO DAILY Gabapentin (Neurontin), 400 MG PO TID Hydrochlorothiazide (Hctz), 25 MG PO QAM Losartan Potassium (Cozaar), 50 MG PO BID Pantoprazole (Protonix), 40 MG PO QAM Pravastatin (Pravachol ), 20 MG PO HS Allergies Coded Allergies: Lisinopril (Verified Adverse Reaction, Unknown, cough, 05/17/17) Physical Exam Vital Signs Date Time Temp Pulse Resp B/P (MAP) Pulse Ox O2 Delivery O2 Flow Rate FiO2 09/15/17 12:04 70 18 125/65 99 Room Air 09/15/17 10:14 60 16 137/65 99 Room Air 09/15/17 09:30 63 18 120/65 99 Room Air 09/15/17 08:45 63 09/15/17 08:34 36.7 63 18 155/67 98 Room Air Physical Exam GENERAL: Patient awake, alert, oriented x 3. Patient follows commands. Patient does not appear toxic. Patient is adequately hydrated and well- nourished. SKIN: No erythema, pallor, cyanosis or rash HEENT: Normal head, pupils equal, reactive to light and accommodation. Ears normal. Oral cavity and posterior pharynx appear normal. Neck: Without adenopathy, no neck vein distention. LUNGS: Clear to auscultation. No wheezes, no rales, no rhonchi. HEART: No murmurs. No gallops. No rubs ABDOMEN: No masses, no rebound, no hepatomegaly or splenomegaly. EXTREMITIES: No signs of trauma. No pedal or pretibial edema. No calf or thigh tenderness. NEUROLOGIC: Cranial nerves II-XII within normal limits. No gross motor sensory function deficits. Medical Decision & Procedures ER Provider Diagnostic Interpretation: X ray results are stated below per my interpretation and the radiologist's interpretation. CHEST 2 VIEWS ROUTINE CLINICAL HISTORY: weakness dyspnea COMPARISON STUDY: 11/22/2016 FINDINGS: Infiltrate right base. Lungs otherwise appear clear. No evidence for cardiac enlargement. Diaphragms are smooth. IMPRESSION: Infiltrate right base. The above report was generated using voice recognition software. It may contain grammatical, syntax or spelling errors. Electronically signed by: Dony Khan M.D. 09/15/2017 9:43 AM Dictated Date/Time: 09/15/2017 9:43 AM Laboratory Results 09/15/17 08:49 Red Blood Count 4.12, Mean Corpuscular Volume 97.6, Mean Corpuscular Hemoglobin 33.3, Mean Corpuscular Hemoglobin Concent 34.1, Mean Platelet Volume 10.8, Neutrophils (%) (Auto) 69.6, Lymphocytes (%) (Auto) 19.4, Monocytes (%) (Auto) 9.3, Eosinophils (%) (Auto) 1.0, Basophils (%) (Auto) 0.5, Neutrophils # (Auto) 4.27, Lymphocytes # (Auto) 1.19, Monocytes # (Auto) 0.57, Eosinophils # (Auto) 0.06, Basophils # (Auto) 0.03 09/15/17 08:49 Test 09/15/17 08:49 09/15/17 09:11 09/15/17 10:09 White Blood Count 6.13 K/uL (4.8-10.8) Red Blood Count 4.12 M/uL (4.7-6.1) Hemoglobin 13.7 g/dL (14.0-18.0) Hematocrit 40.2 % (42-52) Mean Corpuscular Volume 97.6 fL (80-100) Mean Corpuscular Hemoglobin 33.3 pg (25-34) Mean Corpuscular Hemoglobin Concent 34.1 g/dl (32-36) Platelet Count 155 K/uL (130-400) Mean Platelet Volume 10.8 fL (7.4-10.4) Neutrophils (%) (Auto) 69.6 % Lymphocytes (%) (Auto) 19.4 % Monocytes (%) (Auto) 9.3 % Eosinophils (%) (Auto) 1.0 % Basophils (%) (Auto) 0.5 % Neutrophils # (Auto) 4.27 K/uL (1.4-6.5) Lymphocytes # (Auto) 1.19 K/uL (1.2-3.4) Monocytes # (Auto) 0.57 K/uL (0.11-0.59) Eosinophils # (Auto) 0.06 K/uL (0-0.5) Basophils # (Auto) 0.03 K/uL (0-0.2) RDW Standard Deviation 45.8 fL (36.4-46.3) RDW Coefficient of Variation 12.8 % (11.5-14.5) Immature Granulocyte % (Auto) 0.2 % Immature Granulocyte # (Auto) 0.01 K/uL (0.00-0.02) Anion Gap 4.0 mmol/L (3-11) Est Creatinine Clear Calc Drug Dose 65.9 ml/min Estimated GFR () 63.5 Estimated GFR (Non- 54.8 BUN/Creatinine Ratio 11.2 (10-20) Calcium Level 8.4 mg/dl (8.5-10.1) Total Bilirubin 0.5 mg/dl (0.2-1) Aspartate Amino Transf (AST/SGOT) 20 U/L (15-37) Alanine Aminotransferase (ALT/SGPT) 37 U/L (12-78) Alkaline Phosphatase 89 U/L (45-117) Troponin I < 0.015 ng/ml (0-0.045) Total Protein 7.8 gm/dl (6.4-8.2) Albumin 3.5 gm/dl (3.4-5.0) Globulin 4.3 gm/dl (2.5-4.0) Albumin/Globulin Ratio 0.8 (0.9-2) Influenza Type A (RT-PCR) Neg for Influ A (NEG) Influenza Type B (RT-PCR) Neg for Influ B (NEG) Urine Color YELLOW Urine Appearance CLEAR (CLEAR) Urine pH 8.5 (4.5-7.5) Urine Specific Jackson 1.019 (1.000-1.030) Urine Protein NEG (NEG) Urine Glucose (UA) NEG (NEG) Urine Ketones NEG (NEG) Urine Occult Blood NEG (NEG) Urine Nitrite NEG (NEG) Urine Bilirubin NEG (NEG) Urine Urobilinogen NEG (NEG) Urine Leukocyte Esterase NEG (NEG) Laboratory results as stated above per my review. Medications Administered Medications (Trade) Dose Ordered Sig/Maximo Route Start Time Stop Time Status Last Admin Dose Admin Ceftriaxone Sodium (Rocephin Inj) 1 gm NOW STAT IV 09/15/17 11:02 09/15/17 11:04 DC 09/15/17 11:12 1 GM Azithromycin (Zithromax Tab) 500 mg NOW ONCE PO 09/15/17 11:15 09/15/17 11:16 DC 09/15/17 11:13 500 MG ECG Indication: nausea Rate (beats per minute): 60 Rhythm: normal sinus Findings: no acute ischemic change, no ectopy ED Course 851: Past medical records reviewed. The patient was evaluated in room A11B. A complete history and physical examination was performed. 1102: Ordered Rocephin Inj 1 gm IV. 1115: Ordered Zithromax Tab 500 mg PO. 1140: Upon reevaluation, the patient appeared to have improvement of his symptoms. I discussed today's findings with him. He verbalized agreement of the treatment plan. He was discharged home. Medical Decision I considered multiple diagnoses including influenza, other viral infection, pneumonia, UTI, metabolic disorder, CVA, TIA. Labs, EKG and imaging were obtained. Please see above. The patient has an infiltrate at the right base. I remain concerned about any possible underlying mass or bronchial obstruction. White count is not elevated. The patient was given IV Rocephin and Zithromax. He will continue Zithromax at home. The patient will require follow-up by his family physician. Medication Reconcilliation Current Medication List: was personally reviewed by me Blood Pressure Screening Patient's blood pressure: Elevated blood pressure Blood pressure disposition: Referred to PCP Impression Primary Impression: Right lower lobe pneumonia Additional Impression: Hypokalemia Scribe Attestation The scribe's documentation has been prepared under my direction and personally reviewed by me in its entirety. I confirm that the note above accurately reflects all work, treatment, procedures, and medical decision making performed by me. Departure Information Dispostion Home / Self-Care Prescriptions Azithromycin (ZITHROMAX) 250 Mg Tab 250 MG PO DAILY for 9 Days, #9 TAB Prov: Mario Clifton M.D. 09/15/17 Referrals Erik Salinas M.D. (PCP) Patient Instructions ED Pneumonia Adult, Hypokalemia Vj, [facility] Additional Instructions 1 Zithromax daily for 9 days starting tomorrow. Drink extra fluids. Follow-up with your family physician within the next 7 days. Off work until09/20/17 Increase potassium in your diet. Problem Qualifiers Primary Impression: Right lower lobe pneumonia Pneumonia type: due to unspecified organism Qualified Codes: J18.1 - Lobar pneumonia, unspecified organism
[2017-09-15 09:14] LABS: BASO % 0.5 %; BASO ABS # 0.03 K/uL (0-0.2); EOS ABS # 0.06 K/uL (0-0.5); HEMATOCRIT 40.2 % (42-52); HEMOGLOBIN 13.7 g/dL (14.0-18.0); IG# 0.01 K/uL (0.00-0.02); LYMPH % 19.4 %; LYMPH ABS # 1.19 K/uL (1.2-3.4); MEAN CELL VOLUME 97.6 fL (80-100); MEAN CORPUSCULAR HEMOGLOBIN 33.3 pg (25-34); MEAN CORPUSCULAR HGB CONC 34.1 g/dl (32-36); MEAN PLATELET VOLUME 10.8 fL (7.4-10.4); MONO % 9.3 %; MONO ABS # 0.57 K/uL (0.11-0.59); NEUT % 69.6 %; NEUT ABS # 4.27 K/uL (1.4-6.5); PLATELET COUNT 155 K/uL (130-400); RED CELL DISTRIBUTION WIDTH CV 12.8 % (11.5-14.5); RED CELL DISTRIBUTION WIDTH SD 45.8 fL (36.4-46.3); WHITE BLOOD COUNT 6.13 K/uL (4.8-10.8)
[2017-09-15 09:33] LABS: ALBUMIN 3.5 gm/dl (3.4-5.0); ALT/SGPT 37 U/L (12-78); AST/SGOT 20 U/L (15-37); BLOOD UREA NITROGEN 15 mg/dl (7-18); CALCIUM 8.4 mg/dl (8.5-10.1); CARBON DIOXIDE 29 mmol/L (21-32); CREATININE 1.31 mg/dl (0.60-1.40); GLUCOSE 114 mg/dl (70-99); POTASSIUM 3.2 mmol/L (3.5-5.1); SODIUM 134 mmol/L (136-145)
[2017-09-15 09:36] LABS: ALKALINE PHOSPHATASE 89 U/L (45-117); TOTAL PROTEIN 7.8 gm/dl (6.4-8.2)
--- NOTE | 2017-09-15 09:45 | DIAGNOSTIC IMAGING REPORT ---
CHEST 2 VIEWS ROUTINE CLINICAL HISTORY: weakness dyspnea COMPARISON STUDY: 11/22/2016 FINDINGS: Infiltrate right base. Lungs otherwise appear clear. No evidence for cardiac enlargement. Diaphragms are smooth. IMPRESSION: Infiltrate right base. The above report was generated using voice recognition software. It may contain grammatical, syntax or spelling errors. Electronically signed by: Dony Khan M.D. 09/15/2017 9:43 AM Dictated Date/Time: 09/15/2017 9:43 AM
[2017-09-15 10:53] LABS: INFLUENZA A PCR Neg for Influ A (NEG); INFLUENZA B PCR Neg for Influ B (NEG)
[2017-09-15] MEDS ORDERED: CEFTRIAXONE SOD INJ 1 GM ADDVIAL IV STA (11:02)
[2017-09-15] MEDS ORDERED: AZITHROMYCIN 250 MG TAB PO ONE (11:15)
[2017-09-15] MEDS ORDERED: AZIT-60 PO (11:49)
[2017-09-15 12:04] VITALS: BP 125/65; PULSE 70; O2SAT 99
== END 2017-09-15 12:07 | disposition home or self-care (01) ==
LOC: C.EDB 08:22 → C.EDA 12:07
DX: J18.9 Pneumonia, unspecified organism (principal); E87.6 Hypokalemia; E78.5 Hyperlipidemia, unspecified; I10 Essential (primary) hypertension; K21.9 Gastro-esophageal reflux disease without esophagitis; I25.10 Atherosclerotic heart disease of native coronary artery without angina pectoris; Z98.61 Coronary angioplasty status; Z87.19 Personal history of other diseases of the digestive system; Z85.46 Personal history of malignant neoplasm of prostate; Z87.891 Personal history of nicotine dependence; Z79.82 Long term (current) use of aspirin; Z79.899 Other long term (current) drug therapy; Z88.8 Allergy status to other drugs, medicaments and biological substances; Z80.9 Family history of malignant neoplasm, unspecified; Z83.3 Family history of diabetes mellitus; Z82.49 Family history of ischemic heart disease and other diseases of the circulatory system

== ENCOUNTER → 2017-11-02 | Outpatient (CLI) | payer OTHER ==
[~2017-11-02] MED LIST changes: +AMLO-114 PO; -AMLO10TA3 PO; +AZITTAB PO; +ERYOPO OPL; +ERYOPO OPR
--- NOTE | 2017-11-02 10:51 | DIAGNOSTIC IMAGING REPORT ---
CHEST 2 VIEWS ROUTINE HISTORY: 72 years-old Male Z87.01 History of [id number] follow-up study in a patient with history of recent pneumonia of the right lung base COMPARISON: Chest radiograph 09/15/2017 TECHNIQUE: PA and lateral views of the chest FINDINGS: Cardiomediastinal and hilar silhouettes are within normal limits. Atherosclerosis of the aorta. There is no pneumothorax, pleural effusion or focal airspace consolidation. There is resolution of the previously noted alveolar opacities of the right lung base. Lungs are mildly hyperinflated with diaphragmatic flattening. Endplate spurring is noted throughout the spine. IMPRESSION: 1. No acute process. 2. Resolution of the previously described alveolar opacities of the right lung base. The above report was generated using voice recognition software. It may contain grammatical, syntax or spelling errors. Electronically signed by: Andrew Jesus M.D. 11/02/2017 10:50 AM Dictated Date/Time: 11/02/2017 10:49 AM
[2017-11-02 12:31] LABS: BLOOD UREA NITROGEN 17 mg/dl (7-18); CALCIUM 8.9 mg/dl (8.5-10.1); CARBON DIOXIDE 28 mmol/L (21-32); CREATININE 1.28 mg/dl (0.60-1.40); GLUCOSE 107 mg/dl (70-99); POTASSIUM 3.8 mmol/L (3.5-5.1); SODIUM 135 mmol/L (136-145)
== END | disposition home or self-care (01) ==
LOC: C.RAD 09:33
PROVIDERS: ATTEND Internal Medicine
DX: Z87.01 Personal history of pneumonia (recurrent) (principal); E87.6 Hypokalemia

== ENCOUNTER → 2017-11-21 | Outpatient (CLI) | payer OTHER ==
[~2017-11-21] MED LIST changes: -AZITTAB PO; -ERYOPO OPL; -ERYOPO OPR
--- NOTE | 2017-11-21 08:51 | DIAGNOSTIC IMAGING REPORT ---
(CHEST) THORAX WITHOUT CLINICAL HISTORY: 72 years-old Male presenting with R91.1 Pulmonary nodule. TECHNIQUE: Multidetector CT imaging of the chest was performed without the use of intravenous contrast. IV contrast: None. A dose lowering technique was used consistent with the principles of ALARA (as low as reasonably achievable). COMPARISON: 11/22/2016. CT DOSE (mGy.cm): The estimated cumulative dose is 1328.88 mGy.cm. FINDINGS: Sub Assembly Team Worker topogram: Unremarkable. On soft tissue windows, normal thyroid and thoracic inlet. No axillary, supraclavicular, or mediastinal lymphadenopathy. Evaluation of the nadege limited without intravenous contrast. Atherosclerosis of the aorta. Normal heart size. Coronary artery calcification. No pericardial or pleural effusion. Borderline hepatic steatosis. On lung windows, solid 3 mm nodule at the right apex (series 4 image 57), unchanged. No new nodule. Central airways patent. On bone windows, degenerative changes of the spine. IMPRESSION: 1. Stable solid 3 mm right upper lobe nodule. No new nodule. No further follow-up is warranted per [employer] Society 2017 recommendations. Please refer to below summary of Fleischner Society 2017 recommendations for follow-up of incidental CT nodules (H Hien et al. Guidelines for management of incidental pulmonary nodules detected on CT images: From the Fleischner Society 2017. Radiology 2017; 284: 228-243.) SOLID NODULES Single nodule; size < 6 mm * Low risk patients: No routine follow-up * High risk patients: Optional CT at 12 months Single nodule; size 6-8 mm * Low risk patients: CT at 6-12 months, then consider CT at 18-24 months * High risk patients: CT at 6-12 months, then at 18-24 months Single nodule; size > 8 mm * Either low or high risk patients: Considered CT at 3 months, PET/CT, or tissue sampling Multiple nodules; size < 6 mm * Low risk patients: No routine follow up * High risk patients: Optional CT at 12 months Multiple nodules; size 6-8 mm * Low risk patients: CT at 3-6 months, then consider CT at 18-24 months * High risk patients: CT at 3-6 months, then at 18-24 months Multiple nodules; size > 8 mm * Low risk patients: CT at 3-6 months, then consider at 18-24 months * High risk patients: CT at 3-6 months, then at 18-24 months SUBSOLID NODULES Single ground-glass nodule * Nodule size < 6 mm: No routine follow-up * Nodule size > or = 6 mm: CT at 6-12 months to confirm persistence, then CT every 2 years until 5 years Single part-solid nodule * Nodule size < 6 mm: No routine follow-up * Nodules size > or = 6 mm: CT at 3-6 months to confirm persistence. If unchanged and solid component remains < 6 mm, annual CT should be performed for 5 years Multiple nodules * Nodule size < 6 mm: CT at 3-6 months. If stable, consider CT at 2 and 4 years. * Nodules size > or = 6 mm: CT at 3-6 months. Subsequent management based on the most suspicious nodule(s) NOTE: These guidelines apply to incidental nodules. These guidelines do not apply to patients younger than 35 years, immunocompromised patients, or patients with cancer. * Low risk patients: Minimal or absent history of smoking and/or other known risk factors * High risk patients: History of smoking, exposure to other carcinogens, emphysema, fibrosis, upper lobe location, family history of lung cancer, etc. If a nodule up to 8 mm is partly solid or is ground glass, further follow-up is required after 24 months to exclude possible slow growing adenocarcinoma. Electronically signed by: Deangelo Funez M.D. 11/21/2017 8:49 AM Dictated Date/Time: 11/21/2017 8:44 AM
== END | disposition home or self-care (01) ==
LOC: C.CTS 08:25
PROVIDERS: ATTEND Internal Medicine
DX: R91.1 Solitary pulmonary nodule (principal)

== ENCOUNTER 2017-12-05 20:28 | Emergency (ER) | payer OTHER ==
[~2017-12-05] VITALS: Ht 180.3 cm; Wt 107.0 kg
[2017-12-05 20:32] VITALS: TEMP 36.8; Ht 180.3 cm; Wt 107.0 kg
--- NOTE | 2017-12-05 21:20 | EMERGENCY ROOM VISIT NOTE ---
History First contact with patient: 20:37 Chief Complaint: FLU LIKE SX Stated Complaint: FLU History of Present Illness The patient is a 72 year old male who presents to the Emergency Room via private vehicle accompanied by female with complaints of "flulike symptoms". The patient states that he began with a dry cough on , that progressed into this morning. He states that when he woke this morning his eyes were crusted shut. He states it feels like there is sand in his eyes. He notes a drainage now from both eyes. He also has sinus congestion that is draining down the back of his throat and a cough which is now beginning to be productive. He also has pain in the left ear. He has no chest pain. No fevers. He notes minimal shortness of breath which he contributes likely secondary to nasal congestion. Review of Systems A complete 10-point Review of Systems was discussed with the patient, with pertinent positives and negatives listed in the History of Present Illness. All remaining Review of Systems questions can be considered negative unless otherwise specified. Past Medical/Surgical History Medical Problems: (1) Cervical Spinal Stenosis (2) Chest pain (3) Coron Atheroscler Nos Type Vessel, [place] Or Graft (4) Esophageal Reflux (5) GI bleed (6) Gouty Arthropathy, Unspecified (7) Hyperlipidemia Nec/Nos (8) Hypertension Nos (9) Malign Neopl Prostate (10) Tobacco Use Disorder Surgical Problems: (1) Percutaneous Translum Coron Angioplasty Status Family History Cancer Diabetes mellitus Heart disease Hypertension Social History Smoking Status: Never Smoker Alcohol Use: occasionally Marital Status: Housing Status: lives with family Occupation Status: retired Current/Historical Medications Scheduled Allopurinol (Zyloprim), 100 MG PO QAM Amlodipine (Norvasc), 10 MG PO HS Aspirin (Aspirin 81), 81 MG PO QAM Azithromycin (Zithromax Z-Benson), 1 PKT PO UD Erythromycin Opth (Erythromycin Opth), 0.5 INCH OPR Q4 Erythromycin Opth (Erythromycin Opth), 0.5 INCH OPL Q4 Gabapentin (Neurontin), 400 MG PO TID Hydrochlorothiazide (Hctz), 25 MG PO QAM Losartan Potassium (Cozaar), 50 MG PO BID Pantoprazole (Protonix), 40 MG PO QAM Pravastatin (Pravachol ), 20 MG PO HS Physical Exam Vital Signs Date Time Temp Pulse Resp B/P (MAP) Pulse Ox O2 Delivery O2 Flow Rate FiO2 12/05/17 22:04 64 20 129/55 93 Room Air 12/05/17 20:32 36.8 69 20 136/76 95 Room Air Physical Exam VITAL SIGNS - Vital signs and nursing notes were reviewed. Stable. Afebrile. GENERAL -72-year-old male appearing his stated age who is in no acute distress. Communicates well with provider and answers questions appropriately. SKIN - Without rashes. No meningeal or petechial rash. HEAD - NC/AT. EYES - PERRL with EOMI bilaterally. Sclera anicteric. Minimal bulbar conjunctival erythema. There is a yellowish brown discharge from the eyes. EARS - No deformities of external structures noted on gross examination bilaterally. Left ear with erythema that encroaches upon the TM. NOSE - Midline and without cyanosis. No epistaxis or purulent drainage noted. MOUTH/OROPHARYNX - Without perioral cyanosis. Buccal mucosa pink and moist and without leukoplakia. Tongue midline with equal elevation of palate bilaterally. No tonsillar hypertrophy, erythema, or exudates noted. Fair dentition noted. NECK - Neck with FROM. Supple to palpation. No lymphadenopathy noted. No nuchal rigidity. LUNGS - Chest wall symmetric without accessory muscle use, intercostals retractions, or central cyanosis. Normal vesicular breath sounds CTA B/L. No wheezes, rales, or rhonchi appreciated. CARDIAC - RRR with S1/S2. No murmur, rubs, or gallops appreciated. NEUROLOGIC - Cranial nerves II through XII grossly intact. PSYCH - A&O, and cooperates fully with examiner. Pt is very pleasant and interacts well with examiner. Medical Decision & Procedures ER Provider Diagnostic Interpretation: CHEST 2 VIEWS ROUTINE CLINICAL HISTORY: cough, congestion COMPARISON STUDY: November 02, 2017 FINDINGS: The heart is borderline enlarged. There is no failure. There is no focal pulmonary consolidation. There are no pleural effusions. There is a small linear focus of atelectasis/scarring at the left lung base. There is bridging calcification of the anterior longitudinal ligament within the dorsal spine.[ IMPRESSION: No active disease in the chest. Electronically signed by: Javid Ramires M.D. 12/05/2017 9:17 PM Dictated Date/Time: 12/05/2017 9:16 PM Medications Administered Medications (Trade) Dose Ordered Sig/Maximo Route Start Time Stop Time Status Last Admin Dose Admin Albuterol (Ventolin Hfa Inhaler) 2 puffs ONE STAT INH 12/05/17 22:05 12/05/17 22:07 DC 12/05/17 22:17 2 PUFFS Erythromycin (Erythromycin Oph Oint) 1 appln NOW STAT OP 12/05/17 22:05 12/05/17 22:07 DC 12/05/17 22:18 1 APPLN Medical Decision Patient was seen and evaluated as above in room B6. He presents to us today with flulike symptoms. No fevers or chest pain. Review was performed of nursing notes and vital signs. After obtaining a thorough history and physical examination the above work up was performed. He is well on exam. Chest 2 views obtained. No acute process. I suspect he is still likely experiencing a viral process however the eyes do appear to have bacterial conjunctivitis bilaterally. He will be treated with erythromycin ointment. He will be given an inhaler for his cough. He was given a prescription for azithromycin that he is to take if his symptoms persist. This was because he is approaching a week of symptoms and with his past medical history find this pertinent to provide. He is to follow with his family doctor or return with worsening. The patient was educated upon management, had questions answered prior to discharge, and was discharged home in good condition. Case was discussed with the attending physician. I attest that I have personally reviewed the patient medication list. I attest that I have reviewed the patient's blood pressure and it was found to be elevated In the evaluation and treatment of this patient the following differential diagnoses were entertained: Virus, pneumonia, bacterial conjunctivitis, viral conjunctivitis, sinusitis, among others. Impression Primary Impression: Influenza-like symptoms Additional Impression: Conjunctivitis Departure Information Dispostion Home / Self-Care Condition GOOD Prescriptions Erythromycin Opth (ERYTHROMYCIN OPTH) 12 Appln/3.5 Gm Oint 0.5 INCH OPL Q4 for 10 Days, #1 TUBE Prov: He Samuels PA-C 12/05/17 Erythromycin Opth (ERYTHROMYCIN OPTH) 12 Appln/3.5 Gm Oint 0.5 INCH OPR Q4 for 10 Days, #1 TUBE Prov: He Samuels PA-C 12/05/17 Azithromycin (ZITHROMAX Z-BENSON) 250 Mg Tab 1 PKT PO UD for 5 Days, #6 TAB Prov: He Samuels PA-C 12/05/17 Referrals Erik Salinas M.D. (PCP) Patient Instructions My [facility] Additional Instructions You have been treated in the Emergency Department today for your flulike symptoms, and eye infection. You have been prescribed Erythromycin Ophthalmic Ointment. This is an antibiotic ointment which will help prevent an infection from developing in your affected eye. You should apply a 1 cm ribbon of the ointment to the lower part of the affected eye up to every 4 hours for the next 7-10 days. Please use separate ointment tubes for the eyes. Inhaler 1puff every 6 hours for your cough. Azithromycin 500mg on day one then 250mg on days 2-5 if cough persists. For pain control, you can use the following [id number] medicines: - Regular strength (325mg/tab) Tylenol (acetaminophen) 2 tabs every 4-6 hours as needed. Do not exceed 12 tablets in a 24 hour period. Avoid taking more than 3 grams (3000 mg) of Tylenol per day. This includes any other sources of acetaminophen you may take on a regular basis. Please call your family doctor to schedule follow-up. Return to the Emergency Department if your current symptoms worsen despite treatment course outlined above, or if you develop any of the following symptoms : intractable pain, visual disturbances, loss of vision, increased redness, swelling, drainage, or if you develop a fever. Problem Qualifiers
[2017-12-05 22:04] VITALS: BP 129/55; PULSE 64; O2SAT 93
[2017-12-05] MEDS ORDERED: ALBUTEROL HFA 8 GM INHALER INH STA (22:05)
[2017-12-05] MEDS ORDERED: ERYTHROMYCIN OP OINT 5 MG/GM 3.5 GM TUBE OP STA ×2 (22:05)
[2017-12-05] MEDS ORDERED: AZITTAB PO (22:14)
[2017-12-05] MEDS ORDERED: ERYOPO OPR (22:14)
[2017-12-05] MEDS ORDERED: ERYOPO OPL (22:14)
--- NOTE | 2017-12-06 02:01 | EMERGENCY ROOM VISIT NOTE ---
ED Visit Note First contact with patient: 20:37 I have personally seen and evaluated the patient with the PA. I agree with the diagnosis and management decisions and have been personally involved in the case. Please see He Samuels PA-C's notes for further details of the history, physical and visit.
== END 2017-12-05 22:26 | disposition home or self-care (01) ==
LOC: C.EDB 20:29
DX: H10.9 Unspecified conjunctivitis (principal); R05 Cough; H92.02 Otalgia, left ear; I25.10 Atherosclerotic heart disease of native coronary artery without angina pectoris; K21.9 Gastro-esophageal reflux disease without esophagitis; M10.9 Gout, unspecified; E78.5 Hyperlipidemia, unspecified; I10 Essential (primary) hypertension; Z85.46 Personal history of malignant neoplasm of prostate; Z98.62 Peripheral vascular angioplasty status; Z80.9 Family history of malignant neoplasm, unspecified; Z83.3 Family history of diabetes mellitus; Z82.49 Family history of ischemic heart disease and other diseases of the circulatory system; Z79.82 Long term (current) use of aspirin; Z79.899 Other long term (current) drug therapy